=== PATIENT | male | born 1955 | race Caucasian/White ===

== ENCOUNTER → 2016-05-11 | Outpatient (CLI) | payer BC ==
[~2016-05-11] MED LIST: BENICAR; CALC-223 PO; ESCI10TA; ESOM20CA; LORA-52; LORA10TA3 PO; MESA500C; OMEG1CAP90 PO; TERA5CAP3 PO; UBID100C24 PO; VITA1TAB69 PO; [UNRECOGNIZED DRUG - OTHER]
[2016-05-11 07:24] LABS: BASOPHILS % 0.4 % (0.0-2.0); EOSINOPHILS # 0.1 10^3/ul (0.0-0.5); EOSINOPHILS % 2.2 % (0.0-7.0); HEMOGLOBIN 13.6 g/dl (14.0-18.0); LYMPHOCYTES # 1.4 10^3/ul (0.8-2.9); LYMPHOCYTES % 22.9 % (15.0-51.0); MEAN CORPUSCULAR HEMOGLOBIN 32.7 pg (29.0-33.0); MEAN CORPUSCULAR HGB CONC 34.1 g/dl (32.0-37.0); MEAN PLATELET VOLUME 8.3 fl (7.4-10.4); MONOCYTE # 0.3 10^3/ul (0.3-0.9); MONOCYTES % 5.3 % (0.0-11.0); NEUTROPHIL # 4.3 10^3/ul (1.6-7.5); NEUTROPHILS % 69.2 % (39.0-77.0); PLATELET COUNT 169 10^3/UL (140-440); RED BLOOD COUNT 4.16 10^6/ul (4.70-6.10); RED CELL DISTRIBUTION WIDTH 12.5 % (11.5-14.5); UNCORRECTED WBC 6.2 10^3/ul (4.8-10.8); WHITE BLOOD COUNT 6.2 10^3/ul (4.8-10.8)
[2016-05-11 07:39] LABS: ALBUMIN 4.4 g/dl (3.3-4.9); POTASSIUM 4.7 mmol/L (3.5-5.1)
[2016-05-11 07:41] LABS: CREATININE 1.37 mg/dl (0.61-1.24)
[2016-05-11 07:42] LABS: ALBUMIN/GLOBULIN RATIO 1.12; BILIRUBIN,INDIRECT 0.3 mg/dl (0-1.1); BILIRUBIN,TOTAL 0.3 mg/dl (0.2-1.3); CALCIUM 9.8 mg/dl (8.4-10.2); TOTAL PROTEIN 8.3 g/dl (6.1-8.1)
[2016-05-11 07:48] LABS: CONDITION 1
[2016-05-11 10:04] LABS: ADD UMIC YES; URINE BILIRUBIN (Dip) NEGATIVE (NEGATIVE); URINE BLOOD (Dip) 1+ (NEGATIVE); URINE COLOR YELLOW (YELLOW); URINE GLUCOSE (Dip) NEGATIVE (NEGATIVE); URINE KETONES (Dip) TRACE (NEGATIVE); URINE LEUKOCYTE ESTERASE (Dip) NEGATIVE (NEGATIVE); URINE NITRITE (Dip) NEGATIVE (NEGATIVE); URINE TOTAL PROTEIN (Dip) NEGATIVE (NEGATIVE); URINE UROBILINOGEN (Dip) 0.2 E.U./dL (0.1-1.0)
== END | disposition home or self-care (01) ==
LOC: LAB 06:53
PROVIDERS: ATTEND Internal Medicine Gastroenterology
DX: K50.90 Crohn's disease, unspecified, without complications (principal)
CPT/HCPCS: 80053; 81001; 81003; 85025; 85651; 86140

== ENCOUNTER 2016-05-25 14:09 | Inpatient (IN) | payer BC ==
[~2016-05-25] VITALS: Ht 170.2 cm; Wt 89.1 kg
[2016-05-25] MEDS ORDERED: HYDROmorphONE 1 MG/ML SYG IV STA ×4 (14:41→18:38)
[2016-05-25] MEDS ORDERED: ONDANSETRON 4 MG INJ IV STA ×2 (14:41→18:38)
[2016-05-25 15:13] LABS: BASOPHILS % 0.5 % (0.0-2.0); EOSINOPHILS # 0.2 10^3/ul (0.0-0.5); EOSINOPHILS % 2.5 % (0.0-7.0); HEMOGLOBIN 13.2 g/dl (14.0-18.0); LYMPHOCYTES # 3.9 10^3/ul (0.8-2.9); LYMPHOCYTES % 42.7 % (15.0-51.0); MEAN CORPUSCULAR HEMOGLOBIN 32.2 pg (29.0-33.0); MEAN CORPUSCULAR VOLUME 94.7 fl (82.0-101.0); MEAN PLATELET VOLUME 8.9 fl (7.4-10.4); MONOCYTE # 0.6 10^3/ul (0.3-0.9); MONOCYTES % 6.2 % (0.0-11.0); NEUTROPHIL # 4.4 10^3/ul (1.6-7.5); NEUTROPHILS % 48.1 % (39.0-77.0); PLATELET COUNT 197 10^3/UL (140-440); RED BLOOD COUNT 4.12 10^6/ul (4.70-6.10); RED CELL DISTRIBUTION WIDTH 12.4 % (11.5-14.5); UNCORRECTED WBC 9.1 10^3/ul (4.8-10.8); WHITE BLOOD COUNT 9.1 10^3/ul (4.8-10.8)
[2016-05-25 15:23] LABS: CONDITION 1
[2016-05-25 15:25] LABS: ALBUMIN 4.5 g/dl (3.3-4.9); CHLORIDE 106 mmol/L (97-110); SODIUM 145 mmol/L (135-144)
[2016-05-25 15:26] LABS: POTASSIUM 3.5 mmol/L (3.5-5.1)
[2016-05-25 15:27] LABS: BILIRUBIN,INDIRECT 0.2 mg/dl (0-1.1); BILIRUBIN,TOTAL 0.2 mg/dl (0.2-1.3); CREATININE 0.98 mg/dl (0.61-1.24)
[2016-05-25 15:28] LABS: ALANINE AMINOTRANSFERASE 26 IU/L (13-69); ALBUMIN/GLOBULIN RATIO 1.36; ALKALINE PHOSPHATASE 93 IU/L (42-121); ANION GAP 21 (8-16); ASPARTATE AMINO TRANSFERASE 25 IU/L (15-46); BLOOD UREA NITROGEN 18 mg/dl (7-20); CARBON DIOXIDE 22 mmol/L (21-31); TOTAL PROTEIN 7.8 g/dl (6.1-8.1)
[2016-05-25 15:29] LABS: CALCIUM 10.1 mg/dl (8.4-10.2); GLUCOSE 86 mg/dl (70-220)
[2016-05-25 15:41] LABS: C-REACTIVE PROTEIN < 0.5 mg/dl (0.0-0.9)
[2016-05-25 16:08] LABS: INR 0.91; PROTIME 12.2 Sec (12.2-14.2)
[2016-05-25] MEDS ORDERED: SOD CHLORIDE 0.9% 100 ML ONE (16:25)
[2016-05-25] MEDS ORDERED: IOHEXOL 300MG/ML 150 ML BTL ONE (16:25)
[2016-05-25] MEDS ORDERED: TERA5CAP3 PO (16:58)
[2016-05-25] MEDS ORDERED: PANT40TA3 PO (16:59)
[2016-05-25] MEDS ORDERED: MESA500C PO (16:59)
[2016-05-25] MEDS ORDERED: OLME40TA14 PO (17:00)
[2016-05-25] MEDS ORDERED: CHOL100062 PO (17:02)
[2016-05-25] MEDS ORDERED: VEDO300V IV (17:06)
[2016-05-25] MEDS ORDERED: TEST1.25 TD (17:25)
[2016-05-25] MEDS ORDERED: SOD CHLORIDE 0.9% 1,000 ML IV ONE ×2 (17:30)
[2016-05-25 17:54] VITALS: TEMP 99
--- NOTE | 2016-05-25 17:56 | RADRPT ---
AMENDMENT: 05/25/2016 7:25:03 PM Collin Quintana MD ADDENDUM: Although the appendix is prominent measuring up to 9.6 mm on the current study, the appendix was als o similarly prominent on multiple prior studies including CTs of 08/19/2014 and 05/15/2014. There a re no surrounding inflammatory changes on the current study. In the absence of associated inflammat ory changes of the mesenteric fat and clinical signs of appendicitis, an acute appendicitis is less likely. AMENDMENT: 05/25/2016 6:01:38 PM Jose Estrada M.D. Impression: 9. A suture line is identified with adjacent metal clips in the area of the sigmoid colon from prio r partial colectomy. PROCEDURE: CT scan of the abdomen and pelvis with and without IV contrast. CLINICAL INDICATION: Hypertension, appendectomy with history of colon resection. TECHNIQUE: Thin section axial, coronal and sagittal images were performed through the abdomen and pelvis without contrast and then following the injection of 90 cc of Isovue 300. Low-dose protocol i maging was utilized. One or more of the following dose reduction techniques were used: - Automated exposure control. - Adjustment of the mA and/or kV according to patient size. Use of iterative reconstruction technique. Radiation Dose: CTDI: 18.91 and DLP: 1055.6 COMPARISON: No. FINDINGS: Lungs and pleural space: Normal. Heart: There is a small pericardial effusion. The heart is normal in size. The liver, common bile duct and gallbladder: The liver is enlarged measuring 17.3 cm AP. There is f atty infiltration of the liver. The hepatic and portal veins are patent. No hepatic mass or intrah epatic biliary ductal dilatation is present. The gallbladder and gallbladder wall are normal. Pancreas: Normal. The extrahepatic common bile duct is normal. Gastrointestinal: There is no hiatal hernia or gastric wall thickening. The stomach is unremarkable . The small bowel loops have a normal caliber. There is contrast media in the rectal ampulla. The re are diverticula in the sigmoid colon. There are 2 clips adjacent to the distal descending colon. There are diverticula in the descending colon. There are diverticula in the splenic flexure and t ransverse colon. There are diverticula in the ascending colon. The appendix measures 1 cm consiste nt with acute appendicitis. There is no evidence of an appendicolith. There are bilateral inguinal hernias containing fat. Kidneys and bladder : There is a 3.3 x 3.5 cm benign cyst in the lower half of the left kidney. The kidneys are otherwise unremarkable. The urinary bladder is normal. No bladder wall thickening or bladder stone is identified. Adrenal glands: Normal. Spleen: Normal. Lymph nodes: Normal. Reproductive system: The prostate gland is enlarged. It measures 4.6 x 4.8 x 4.5 cm. The seminal v esicles are normal. No free fluid is noted in the pelvis. Bony elements: There are degenerative osteophytes in the thoracic and lumbar spine. There is a Schm orl's node impinging on the superior plate of T12 with disk space narrowing at T11-12. There is a T 12 compression fracture which is stable. There is dorsal disk space narrowing at L5-S1 with a broad disk bulge at L5-S1. There is no evidence of spondylolisthesis. Vasculature: There are vascular calcifications in the common iliac arteries. IMPRESSION: 1. Acute appendicitis. No evidence of an appendicolith. 2. Diverticulosis of the colon. 3. Small pericardial effusion. 4. Hepatomegaly with fatty infiltration of the liver. 5. See clips are noted adjacent to the distal descending colon. 6. Bilateral inguinal hernias containing fat but no intra-abdominal. 7. 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 8. T12 stable old compression fracture. RPTAT:AAJJ .Collin Quintana MD, MD Date Time Electronically viewed and signed by .Collin Quintana MD, MD on 05/25/2016 19:25 .K/
[2016-05-25] MEDS ORDERED: PIPER-TAZO 3.375 GM IV (PMX) 100 ML IVPB ONE (18:30)
--- NOTE | 2016-05-25 18:44 | ERA ---
ER Documentation Chief Complaint Date/Time DATE: 05/25/16 Chief Complaint SEVERE ABD PAIN, HX OF CROHNS HPI The patient is a patient is a 60-year-old male, presenting to the ER because of diffuse, severe abdominal pain that began yesterday morning, 01/18, no aggravating or relieving factor. He has similar symptoms previously, complains of nausea and vomiting mostly mucous, denies diarrhea, constipation, hematemesis , hematochezia. He does not smoke or drink Past medical history: Crohn's disease, hypertension Past surgical history: Left shoulder arthroscopy, knee arthroscopy, partial sigmoidectomy ROS All systems reviewed and are negative except as per history of present illness. Medications Home Meds Reported Medications Testosterone* (Androgel*) 1.62%-1.25gm Gel..ea., 1.25 GM TD DAILY Y for PRN, PACKET 05/25/16 Vedolizumab (Entyvio) 300 Mg Vial, 300 MG IV [id number], VIAL 05/25/16 Cholecalciferol* (Vitamin D3*) 1,000 Unit Tablet, 1000 UNIT PO BID, TAB 05/25/16 Olmesartan Medoxomil (Benicar) 40 Mg Tablet, 40 MG PO DAILY, #30 TAB 05/25/16 Mesalamine* (Pentasa*) 500 Mg Capsule.sa, 1000 MG PO QID, CAP 05/25/16 Pantoprazole* (Protonix*) 40 Mg Tablet.dr, 40 MG PO BID, TAB 05/25/16 Terazosin Hcl* (Terazosin Hcl*) 5 Mg Capsule, 5 MG PO HS, CAP 05/25/16 Discontinued Reported Medications Terazosin Hcl* (Terazosin Hcl*) 5 Mg Capsule, 5 MG PO DAILY, CAP 04/06/16 Vitamin B Complex (B Complete) 1 Tab Tablet, 1 TAB PO 200MG DAILY 12/27/13 Calcium Carbonate-Vitamin D3 (Calcium 1,000 + D3) 1 Each Tablet, 1 TAB PO DAILY , TAB 12/27/13 Ubidecarenone (Coq-10) 100 Mg Capsule, 100 MG PO DAILY 12/27/13 Fish Oil/[place]-3 Fatty Acids ([place] 3 Fish Oil 1,000 Mg Cap) 1 Cap Capsule, 1 CAP PO BID 12/27/13 Loratadine* (Loratadine*) 10 Mg Tablet, 10 MG PO DAILY, TAB 12/27/13 [Alfuzone] No Conflict Check, 1 TAB HS 12/27/13 [Benicar] No Conflict Check, 12.5 TAB DAILY 12/27/13 Loratadine (Alavert) 10 Mg Tablet 02/18/10 Escitalopram Oxalate* (Lexapro*) 10 Mg Tablet 02/18/10 Esomeprazole Mag Trihydrate (Nexium) 20 Mg Capsule. 02/18/10 Mesalamine* (Pentasa*) 500 Mg Capsule.sa 02/18/10 Allergies Allergies: Coded Allergies: aspirin (Verified Allergy, Mild, 05/25/16) PMhx/Soc History of Surgery: Yes (colon resection, lap appy, tosilectomy, shoulder and knee arthroscopy) Anesthesia Reaction: No Hx Neurological Disorder: No Hx Respiratory Disorders: No Hx Cardiac Disorders: Yes (HTN (CONTROLLED)) Hx Psychiatric Problems: No Hx Miscellaneous Medical Probl: Yes (CROHNS) Hx Alcohol Use: Yes (OOC) Hx Substance Use: No Hx Tobacco Use: No Smoking Status: Never smoker Physical Exam Vitals Vital Signs Date Time Temp Pulse Resp B/P Pulse Ox O2 Delivery O2 Flow Rate FiO2 05/25/16 17:54 99.0 95 16 122/62 99 Nasal Cannula 1.0 05/25/16 15:22 99.0 79 16 95/64 99 Physical Exam Const: No acute distress. Head: Atraumatic. Eyes: Normal Conjunctiva. ENT: Normal External Ears, Nose and Mouth. Neck: Full range of motion. No meningismus. Resp: Clear to auscultation bilaterally. Cardio: Regular rate and rhythm, no murmurs. Abd: Soft, non distended, normal bowel sounds, diffuse abdominal tenderness, no rigidity, rebound, CVA tenderness Skin: No petechiae or rashes. Back: No midline or flank tenderness. Ext: No cyanosis, or edema. Neur: Awake and alert. No focal deficit Psych: Normal Mood and Affect. Result Diagram: 05/25/16 1440 05/25/16 1440 Results 24 hrs Laboratory Tests Test 05/25/16 14:40 Activated Partial Thromboplast Time 36.0Sec Alanine Aminotransferase (ALT/SGPT) 26IU/L Albumin 4.5g/dl Albumin/Globulin Ratio 1.36 Alkaline Phosphatase 93IU/L Anion Gap 21 Aspartate Amino Transf (AST/SGOT) 25IU/L Basophils # 0.010^3/ul Basophils % 0.5% Blood Urea Nitrogen 18mg/dl C-Reactive Protein < 0.5mg/dl Calcium Level 10.1mg/dl Carbon Dioxide Level 22mmol/L Chloride Level 106mmol/L Creatinine 0.98mg/dl Direct Bilirubin 0.00mg/dl Eosinophils # 0.210^3/ul Eosinophils % 2.5% Erythrocyte Sedimentation Rate 40mm/Hr Globulin 3.30g/dl Glucose Level 86mg/dl Hematocrit 39.0% Hemoglobin 13.2g/dl INR International Normalized Ratio 0.91 Indirect Bilirubin 0.2mg/dl Lipase 90U/L Lymphocytes # 3.910^3/ul Lymphocytes % 42.7% Mean Corpuscular Hemoglobin 32.2pg Mean Corpuscular Hemoglobin Concent 34.0g/dl Mean Corpuscular Volume 94.7fl Mean Platelet Volume 8.9fl Monocytes # 0.610^3/ul Monocytes % 6.2% Neutrophils # 4.410^3/ul Neutrophils % 48.1% Nucleated Red Blood Cells # 0.010^3/ul Nucleated Red Blood Cells % 0.0/100WBC Platelet Count 10800^3/UL Potassium Level 3.5mmol/L Prothrombin Time 12.2Sec Prothrombin Time Ratio 1.0 Red Blood Count 4.1210^6/ul Red Cell Distribution Width 12.4% Sodium Level 145mmol/L Total Bilirubin 0.2mg/dl Total Protein 7.8g/dl White Blood Count 9.110^3/ul Current Medications Medications (Trade) Dose Ordered Sig/Dee Route PRN Reason Start Time Stop Time Status Last Admin Dose Admin Hydromorphone HCl (Dilaudid) 1 mg ONCE STAT IV 05/25/16 14:41 05/25/16 14:42 DC 05/25/16 14:54 Ondansetron HCl (Zofran Inj) 4 mg ONCE STAT IV 05/25/16 14:41 05/25/16 14:42 DC 05/25/16 14:53 Hydromorphone HCl (Dilaudid) 1 mg ONCE STAT IV 05/25/16 15:05 05/25/16 15:06 DC 05/25/16 15:12 IV Flush 10 ml 10 ml STK-MED ONCE .ROUTE 05/25/16 16:25 05/25/16 16:26 DC 05/25/16 16:32 Sodium Chloride (NS) 100 ml @ ud STK-MED ONCE .ROUTE 05/25/16 16:25 05/25/16 16:26 DC 05/25/16 16:33 Iohexol 150 ml 150 ml STK-MED ONCE .ROUTE 05/25/16 16:25 05/25/16 16:26 DC 05/25/16 16:32 Sodium Chloride (NS) 1,000 ml @ 1,000 mls/hr Q1H ONCE IV 05/25/16 17:30 05/25/16 18:29 DC 05/25/16 17:13 Hydromorphone HCl 1 mg 1 mg ONCE STAT IV 05/25/16 17:19 05/25/16 17:20 DC 05/25/16 17:24 Sodium Chloride 1,000 ml @ 1,000 mls/hr Q1H ONCE IV 05/25/16 17:30 05/25/16 18:29 DC 05/25/16 17:34 Piperacillin Sod/ Tazobactam Sod (Zosyn 3.375gm/ 100 ml (Pmx)) 100 ml @ 200 mls/hr ONCE ONCE IVPB 05/25/16 18:30 05/25/16 18:59 Procedures/[place] [id number] Radiology Main Line: [phone] DIAGNOSTIC IMAGING REPORT Patient: JESSICA ENCARNACION : 1955 Age: 60 Sex: M MR #: [id number] DOS: 05/25/16 1503 Ordering MD: EMILIA ALDRICH MD Location: E/R Room/Bed: AMENDMENT: 05/25/2016 6:01:38 PM Jose Estrada M.D. Impression: 9. A suture line is identified with adjacent metal clips in the area of the sigmoid colon from prior partial colectomy. PROCEDURE: CT scan of the abdomen and pelvis with and without IV contrast. CLINICAL INDICATION: Hypertension, appendectomy with history of colon resection. TECHNIQUE: Thin section axial, coronal and sagittal images were performed through the abdomen and pelvis without contrast and then following the injection of 90 cc of Isovue 300. Low-dose protocol imaging was utilized. One or more of the following dose reduction techniques were used: - Automated exposure control. - Adjustment of the mA and/or kV according to patient size. Use of iterative reconstruction technique. Radiation Dose: CTDI: 18.91 and DLP: 1055.6 COMPARISON: No. FINDINGS: Lungs and pleural space: Normal. Heart: There is a small pericardial effusion. The heart is normal in size. The liver, common bile duct and gallbladder: The liver is enlarged measuring 17.3 cm AP. There is fatty infiltration of the liver. The hepatic and portal veins are patent. No hepatic mass or intrahepatic biliary ductal dilatation is present. The gallbladder and gallbladder wall are normal. Pancreas: Normal. The extrahepatic common bile duct is normal. Gastrointestinal: There is no hiatal hernia or gastric wall thickening. The stomach is unremarkable. The small bowel loops have a normal caliber. There is contrast media in the rectal ampulla. There are diverticula in the sigmoid colon. There are 2 clips adjacent to the distal descending colon. There are diverticula in the descending colon. There are diverticula in the splenic flexure and transverse colon. There are diverticula in the ascending colon. The appendix measures 1 cm consistent with acute appendicitis. There is no evidence of an appendicolith. There are bilateral inguinal hernias containing fat. Kidneys and bladder : There is a 3.3 x 3.5 cm benign cyst in the lower half of the left kidney. The kidneys are otherwise unremarkable. The urinary bladder is normal. No bladder wall thickening or bladder stone is identified. Adrenal glands: Normal. Spleen: Normal. Lymph nodes: Normal. Reproductive system: The prostate gland is enlarged. It measures 4.6 x 4.8 x 4.5 cm. The seminal vesicles are normal. No free fluid is noted in the pelvis. Bony elements: There are degenerative osteophytes in the thoracic and lumbar spine. There is a Schmorl's node impinging on the superior plate of T12 with disk space narrowing at T11-12. There is a T12 compression fracture which is stable. There is dorsal disk space narrowing at L5-S1 with a broad disk bulge at L5-S1. There is no evidence of spondylolisthesis. Vasculature: There are vascular calcifications in the common iliac arteries. IMPRESSION: 1. Acute appendicitis. No evidence of an appendicolith. 2. Diverticulosis of the colon. 3. Small pericardial effusion. 4. Hepatomegaly with fatty infiltration of the liver. 5. See clips are noted adjacent to the distal descending colon. 6. Bilateral inguinal hernias containing fat but no intra-abdominal. 7. 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 8. T12 stable old compression fracture. RPTAT:AAJJ Physician Jesus Date Time Electronically viewed and signed by Dez Estrada Physician on 05/25/2016 18:01 JM/ CC: EMILIA ALDRICH MD MEDICAL MAKING DECISION: The patient is a 60-year-old male, presenting with acute appendicitis. He was treated with Dilaudid 1 mg IV 4 for pain and Zofran 4 mg IV for nausea and Zosyn IV. The differential diagnoses considered include but are not limited to acute Crohn's exacerbation, cholelithiasis, cholecystitis, cystitis, pancreatitis, hepatitis, gastritis, peptic ulcer disease, gastric ulcer, appendicitis, diverticulitis, cholangitis, choledocholithiasis, partial small bowel obstruction. Consultation: I discussed the patient with the on-call surgeon Dr. Joyner at 6: 15 pm, he was made aware of the lab, the treatment, the patient condition. He accepted the consult Departure Diagnosis: Primary Impression: Appendicitis Additional Impression: Anemia Condition: Stable Comments I discussed the findings with the patient. I discussed the patient with his physician Dr. Ureña who was made aware of the lab, the treatment, the patient condition and my discussion with the general surgeon. The patient is admitted to [facility] at 5:25 pm EMIILA ALDRICH MD May 25, 2016 18:44
[2016-05-25] MEDS ORDERED: ONDANSETRON 4 MG TAB PO PRN (19:00)
[2016-05-25] MEDS ORDERED: morphine 2 MG INJ IV PRN (19:00)
[2016-05-25] MEDS ORDERED: HYDROCODONE/APAP (5/325) TAB PO PRN (19:00)
[2016-05-25] MEDS ORDERED: NACL 0.9% 3 ML SYG IV SCH (19:00)
[2016-05-25] MEDS ORDERED: ACETAMINOPHEN 325 MG TAB PO PRN (19:00)
[2016-05-25] MEDS: PANTOPRAZOLE 40 MG INJ IV SCH (19:00)
--- NOTE | 2016-05-25 19:02 | HP ---
DATE OF ADMISSION: 05/25/2016 IDENTIFYING DATA: The patient is a 60-year-old male admitted to the hospital with diffuse abdominal pain of several months' duration that worsened today. HISTORICAL EVENTS: The patient states it has been over the last several months he has felt punk, fa tigued, has had intermittent and bloating with unremarkable bowel pattern, being followed by Dr. Rakel frias with respect to his Crohn disease, having been maintained on Entyvio since 12/2014 and having frederick d instrumenting, (either of colon or sigmoidoscope) in March that revealed a proctitis. It was t helene that he noted increasing bloating, increasing fatigue, some marked worsening in his appetite, t he absence in his appetite without fever or chills and elected to be evaluated in the emergency room . He has no localized abdominal pain, he has had no recent rectal bleeding. He denies cough, wheez ing, shortness of breath. He has had mild nausea. Denies urinary frequency, urgency, dysuria, or h ematuria. PAST MEDICAL HISTORY: Includes: 1. Crohn's disease, having been on Cimzia and Remicade prior. 2. History of hiatal hernia and duodenitis, as well as gastritis noted by endoscopy in 07/2013. 3. History of diverticulitis and surgery for the same. 4. Tonsillectomy. 5. Right knee surgery x2. 6. Rectal perianal fissure that required surgery in 2001. 7. Mild hyperlipidemia. 8. Mild elevated PSA with microhematuria noted in 04/2016, followup urologic evaluation is in order . 9. Hypertension. 10. Remote history of PAT. 11. History of vasectomy. 12. History of lupus inhibitor. 11. History of low testosterone. 12. Compression fracture noted at T12 in 07/2014. 13. Severe eructation undergoing CT chest, abdomen and pelvis 08/2014 that was unrevealing. ENT ev aluation was of no help. FAMILY HISTORY: Positive for COPD, overweight status. SOCIAL HISTORY: He is a nonsmoker. 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 MEDICATIONS: 1. Terazosin 5 mg per day. 2. Benicar 20/12.5 per day, 3. Lexapro 20, 4. Citracal 250+ D, 200 b.i.d. 5. Vitamin D 2000 units per day. 6. Co Q-10. 7. Nexium 40 mg per day. 8. Pentasa 500 mg capsules 2 tabs orally t.i.d. ALLERGIES OR INTOLERANCES TO INCLUDE: 1. ASPIRIN. 2. UROXATRAL. PHYSICAL EXAMINATION: GENERAL: Acutely ill male complaining of abdominal bloating. VITAL SIGNS: BP 128/80, pulse 70, respirations are 20, he was afebrile. EYES: Extraocular muscles were full. NOSE, MOUTH, AND THROAT: Normal. NECK: Supple. There was no jugular venous distention, thyroid enlargement or adenopathy. LUNGS: Clear. HEART: Rhythm regular, no murmur. No third or fourth sound. ABDOMEN: Distended. Bowel sounds markedly reduced. Generalized tenderness, no local tenderness in either quadrant. EXTREMITIES: No edema, no calf tenderness. NEUROLOGIC: No lateralizing motor weakness. IMPRESSION: Underlying Crohn's, having not done well with respect to bloating and fatigue during th e last 2 to 3 months, with now increasing bloating and no localized pain. Concern that his Crohn's has now become active. Await CAT scan that has just been ordered. PLAN: N.p.o., IV fluids, pain medications, PPI, GI and surgery to see. Dictated By: KELI CHRISTENSEN/NIRU Conf#: [id number] DID#: [id number]
[2016-05-25] MEDS ORDERED: BUPIVACAINE 0.25% (MPF) 30 ML INJ ONE (19:06)
--- NOTE | 2016-05-25 20:53 | CONS ---
DATE OF ADMISSION: 05/25/2016 DATE OF CONSULTATION: 05/25/2016 REASON FOR CONSULTATION: Abdominal pain. REQUESTING PHYSICIAN: Dr. Keli Park Thank you very much, Dr. Park, for your kind consultation. HISTORY OF PRESENT ILLNESS: The patient is a 60-year-old gentleman with a history of Crohn disease status post a sigmoid colon resection who presents complaining of generalized bloating and abdominal pain. He states that these symptoms have been present for the last 2 to 3 months, after he had sto pped taking his Crohn medications. He denies any nausea or vomiting or any fever/chills. He denies any actual change in his bowel habits. He, however, did present to the emergency room for further evaluation. On arrival to the emergency room, he was found to be afebrile with a normal white blood cell count and a CT scan of the abdomen and pelvis, which was done, showed thickening of the append ix. Surgical consultation, therefore, was called. Currently, he states he feels a little bit more comfortable and he denies any abdominal pain at this time, but does complain of some bloating and di scomfort. He states that this is similar type of discomfort when compared to his Crohn flare-ups. PAST MEDICAL HISTORY: Includes Crohn disease on biologic therapy, hiatal hernia and duodenitis as w ell as gastritis, diverticulitis status post colon resection, tonsillectomy, right knee surgery x2, perianal disease secondary to Crohn's, hypercholesterolemia, hypertension. PAST SURGICAL HISTORY: As mentioned in HPI. SOCIAL HISTORY: The patient does not smoke. 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 MEDICATIONS: Please refer to medication reconciliation. ALLERGIES: 1. ASPIRIN. 2. UROXATRAL. REVIEW OF SYSTEMS: A 14-point review of systems was conducted and was negative except for that whic h was mentioned in the HPI. PHYSICAL EXAMINATION: VITAL SIGNS: Temperature is 99.0, pulse is 95, respirations 16, blood pressure 122/62, O2 saturatio n is 99%. GENERAL APPEARANCE: He is a well-developed, well-nourished, male who is awake, alert, and oriented x3 and in no acute distress at this time. HEENT: His pupils are equal and reactive to light and accommodation. Extraocular muscles are intac t. NECK: Supple without JVD. CARDIOVASCULAR: S1, S2. Regular rate and rhythm. No murmurs appreciated. RESPIRATORY: Clear to auscultation bilaterally. ABDOMEN: Soft, but distended. Bowel sounds are present. He is nontender to palpation at this time . There is no evidence of rebound or guarding or diffuse peritonitis. There is a negative Rovsing sign. EXTREMITIES: Do not exhibit any signs of cyanosis, edema, or clubbing. LABORATORY WORK: Shows white blood cell count 9.1, hemoglobin 13.2, platelet count 197. There is n o left shift. Sodium is 145, potassium 3.5, chloride 106, bicarbonate 22, BUN 18, creatinine 0.98, glucose 86. INR is 0.91. IMAGING STUDIES: CT scan of the abdomen and pelvis shows diverticulosis of the colon, small pericar dial effusion, hepatomegaly with fatty infiltration of the liver, clips noted adjacent to the distal descending colon, bilateral inguinal hernias containing fat, atherosclerotic vascular disease of th e common iliac arteries, and a T12 stable compression fracture. The appendix is prominent measuring 9.6 mm. There are no periappendiceal inflammatory changes or appendicolith identified. RECOMMENDATIONS: This is a 60-year-old gentleman with a history of Crohn disease who presents with abdominal bloating and distention and generalized abdominal pain. Currently, the patient is without abdominal pain and, with the exception of some distention, has a b enign abdominal exam. I reviewed the CT scan images with prior CT scan images. The appendix actual ly looks about the same size as the CT scan in 08/2014. There are no inflammatory changes around th e appendix or appendicolith. I confirmed this with the radiologist, Dr. Quintana, who also seems to th ink that appendicitis is less likely given the patient's clinical picture. It is possible that the patient is having flare-up of his Crohn disease; however, there does not appear to be any changes of the small bowel consistent with an acute Crohn flare-up on the CT scan. Given the patient's clinic al stability and exam findings as well as history, I am not convinced that the patient has acute malka endicitis at this time. I would recommend admission with observation and evaluation by his regular GI doctor. Should his symptoms worsen or he develop more clear cut signs of acute appendicitis, the n consideration can be given to diagnostic laparoscopy at that time. I had an extensive discussion regarding the above with the patient and his . They fully underst and and are highly agreeable to the treatment plan as outlined. Further recommendations will be mad e based on the patient's clinical course. Once again, I thank you for allowing me to be involved in the care of this patient. I will follow t he patient closely with you. Dictated By: EMILIA JOHNSON/NIRU Conf#: [id number] DID#: [id number] CC: URI SHOEMAKER MD; KELI APRK MD;*End*
[2016-05-25 22:45] VITALS: BP 137/82; RESP 22
[2016-05-25] MEDS: morphine 2 MG INJ IV PRN (22:50)
[2016-05-25 23:00] VITALS: Ht 170.2 cm; Wt 89.1 kg
[2016-05-25] MEDS: SOD CHLORIDE 0.9% 1,000 ML IV SCH (23:00)
[2016-05-26] MEDS: TERAZOSIN 5 MG CAP PO SCH ×2 (00:13→21:09)
[2016-05-26] MEDS: SOD CHLORIDE 0.9% 1,000 ML IV SCH ×3 (03:49→21:09)
[2016-05-26] MEDS: morphine 2 MG INJ IV PRN ×5 (04:34→21:08)
[2016-05-26] MEDS: PANTOPRAZOLE 40 MG INJ IV SCH ×3 (05:35→17:03)
[2016-05-26 05:53] LABS: ALBUMIN 3.5 g/dl (3.3-4.9)
[2016-05-26 05:54] LABS: POTASSIUM 3.6 mmol/L (3.5-5.1)
[2016-05-26 05:55] LABS: BASOPHILS % 0.1 % (0.0-2.0); EOSINOPHILS # 0.2 10^3/ul (0.0-0.5); EOSINOPHILS % 3.5 % (0.0-7.0); HEMATOCRIT 33.8 % (42.0-52.0); HEMOGLOBIN 11.5 g/dl (14.0-18.0); LYMPHOCYTES # 2.3 10^3/ul (0.8-2.9); LYMPHOCYTES % 35.7 % (15.0-51.0); MEAN CORPUSCULAR HEMOGLOBIN 32.6 pg (29.0-33.0); MEAN CORPUSCULAR VOLUME 95.8 fl (82.0-101.0); MEAN PLATELET VOLUME 9.3 fl (7.4-10.4); MONOCYTE # 0.5 10^3/ul (0.3-0.9); MONOCYTES % 7.3 % (0.0-11.0); NEUTROPHIL # 3.4 10^3/ul (1.6-7.5); NEUTROPHILS % 53.4 % (39.0-77.0); PLATELET COUNT 147 10^3/UL (140-440); RED BLOOD COUNT 3.53 10^6/ul (4.70-6.10); RED CELL DISTRIBUTION WIDTH 12.6 % (11.5-14.5); UNCORRECTED WBC 6.4 10^3/ul (4.8-10.8); WHITE BLOOD COUNT 6.4 10^3/ul (4.8-10.8)
[2016-05-26 05:56] LABS: ALBUMIN/GLOBULIN RATIO 1.25; BILIRUBIN,INDIRECT 0.3 mg/dl (0-1.1); BILIRUBIN,TOTAL 0.3 mg/dl (0.2-1.3); CREATININE 0.89 mg/dl (0.61-1.24); TOTAL PROTEIN 6.3 g/dl (6.1-8.1)
[2016-05-26 05:57] LABS: CALCIUM 8.2 mg/dl (8.4-10.2); MAGNESIUM 1.9 mg/dl (1.7-2.5)
[2016-05-26 06:14] LABS: CONDITION 1
[2016-05-26 06:25] LABS: THYROID STIMULATING HORMONE 2.57 MIU/L (0.465-4.680)
[2016-05-26 07:32] VITALS: BP 127/72; RESP 15
--- NOTE | 2016-05-26 08:29 | PN ---
Date/Time of Note Date/Time of Note DATE: 05/26/16 TIME: 08:25 Assessment/Plan VTE Prophylaxis VTE Prophylaxis Intervention: LMWH Lines/Catheters IV Catheter Type (from Nrsg): Peripheral IV Assessment/Plan Assessment/Plan 1. Abd pain, bloating, red appetite sec Crohns, odd that ct scan revealed no bowel inflam, will rev with dr vera, apprec surg eval last night 2. Anemia, stool ob ordered and iron studies, b12 and folate 3. Will start lovenox, hx lupus anticoagulant. 4. Small pericardial effusion noted on ct scan--ht echo ordered 5. Hx GERD, will inc PPI 6. Diet advanced to clear liquid Subjective 24 Hr Interval Summary Respiratory: No cough, No shortness of breath Cardiovascular: No chest pain Gastrointestinal: other (bloated and full without localized pain, modest nausea , red appetite, int hiccups) Genitourinary: no complaints Musculoskeletal: No no complaints Exam/Review of Systems Vital Signs Vitals Vital Signs Date Time Temp Pulse Resp B/P Pulse Ox O2 Delivery O2 Flow Rate FiO2 05/26/16 07:32 98.8 78 15 127/72 98 05/25/16 23:00 Nasal Cannula 2.0 Intake and Output 05/25/16 05/25/16 05/26/16 15:00 23:00 07:00 Intake Total 1000 ml 620 ml Output Total 750 ml Balance 1000 ml -130 ml Exam Neck: No jvd Respiratory: clear to auscultation Cardiovascular: other (sl distended, soft, sl tender (generalized)), regular rate and rhythm Extremities: No edema (and no calf tend bilat) Results Result Diagram: 05/26/16 0446 05/26/16 0446 Results 24 hrs Laboratory Tests Test 05/25/16 14:40 05/26/16 04:46 Activated Partial Thromboplast Time 36.0 H Alanine Aminotransferase (ALT/SGPT) 26 31 Albumin 4.5 3.5 # Albumin/Globulin Ratio 1.36 1.25 Alkaline Phosphatase 93 78 Anion Gap 21 H 12 # Aspartate Amino Transf (AST/SGOT) 25 21 Basophils # 0.0 0.0 Basophils % 0.5 0.1 Blood Urea Nitrogen 18 15 C-Reactive Protein < 0.5 Calcium Level 10.1 8.2 L Carbon Dioxide Level 22 25 Chloride Level 106 108 Creatinine 0.98 0.89 Direct Bilirubin 0.00 0.00 Eosinophils # 0.2 0.2 Eosinophils % 2.5 3.5 Erythrocyte Sedimentation Rate 40 H Globulin 3.30 H 2.80 Glucose Level 86 92 Hematocrit 39.0 L 33.8 L Hemoglobin 13.2 L 11.5 L INR International Normalized Ratio 0.91 Indirect Bilirubin 0.2 0.3 Lipase 90 Lymphocytes # 3.9 H 2.3 Lymphocytes % 42.7 35.7 Mean Corpuscular Hemoglobin 32.2 32.6 Mean Corpuscular Hemoglobin Concent 34.0 34.0 Mean Corpuscular Volume 94.7 95.8 Mean Platelet Volume 8.9 9.3 Monocytes # 0.6 0.5 Monocytes % 6.2 7.3 Neutrophils # 4.4 3.4 Neutrophils % 48.1 53.4 Nucleated Red Blood Cells # 0.0 0.0 Nucleated Red Blood Cells % 0.0 0.0 Platelet Count 197 147 # Potassium Level 3.5 3.6 Prothrombin Time 12.2 Prothrombin Time Ratio 1.0 Red Blood Count 4.12 L 3.53 L Red Cell Distribution Width 12.4 12.6 Sodium Level 145 H 141 Total Bilirubin 0.2 0.3 Total Protein 7.8 6.3 # White Blood Count 9.1 # 6.4 # Magnesium Level 1.9 Phosphorus Level 3.0 Thyroid Stimulating Hormone (TSH) 2.570 Medications Medications Current Medications Terazosin HCl (Hytrin) 5 mg HS PO Last administered on 05/26/16 00:13; Admin Dose 5 MG; Start 05/25/16 at 23:00 Testosterone (Androgel) 1.25 gm BID TOP ; Start 05/25/16 at 09:00 Losartan Potassium (Cozaar) 100 mg DAILY PO ; Start 05/26/16 at 09:00 Pantoprazole (Protonix Iv) 40 mg DAILY@06 IV Last administered on 05/26/16 05: 35; Admin Dose 40 MG; Start 05/25/16 at 19:00 Escitalopram Oxalate 20 mg 20 mg DAILY PO ; Start 05/26/16 at 09:00 Sodium Chloride (NS) 1,000 ml @ 100 mls/hr Q10H IV Last administered on 23:00; Admin Dose 100 MLS/HR; Start 05/25/16 at 18:37 Ondansetron HCl (Zofran Tab) 4 mg Q6H PRN PO NAUSEA AND/OR VOMITING; Start at 19:00 Acetaminophen (Tylenol Tab) 650 mg Q6H PRN PO PAIN LEVEL 1-3 OR FEVER; Start at 19:00 Acetaminophen/ Hydrocodone Bitart ([place] (5/325)) 2 tab Q6H PRN PO SEVERE PAIN LEVEL 7-10; Start 05/25/16 at 19:00 Morphine Sulfate (morphine) 2 mg Q4H PRN IV PAIN LEVEL 7-10 Last administered on 05/26/16t 04:34; Admin Dose 2 MG; Start 05/25/16 at 19:00 Morphine Sulfate (morphine) 1 mg Q4H PRN IV PAIN LEVEL 1-3; Start 05/25/16 at 19:00 KELI PARK MD May 26, 2016 08:29
[2016-05-26] MEDS: ESCITALOPRAM 10 MG TAB PO SCH (08:38)
[2016-05-26] MEDS: LOSARTAN 50 MG TAB PO SCH (08:38)
[2016-05-26] MEDS: ENOXAPARIN 40 MG/0.4 ML SYG SC SCH (09:33)
[2016-05-26] MEDS: POTASSIUM CHLORIDE 50 ML IVPB SCH ×3 (10:20→12:21)
[2016-05-26] MEDS: TESTOSTERONE 1% GEL 5 GM PACKET TOP SCH ×2 (11:50→21:08)
--- NOTE | 2016-05-26 12:17 | RADRPT ---
PROCEDURE: XR Chest. CLINICAL INDICATION: Abdomen pain. TECHNIQUE: Two views. Frontal and lateral. COMPARISON: 03/30/2016. FINDINGS: The lungs are clear. The heart size is normal. There is no pleural effusion or pneumothorax. There are postsurgical changes of the left shoulder with metallic screws. There is an old compression fracture of approximately T12. IMPRESSION: 1. Prior left shoulder surgery. 2. Old compression fracture of approximately T12. 3. Otherwise unremarkable chest radiographs. RPTAT: QQ .Lloyd Guerra MD, MD Date Time Electronically viewed and signed by .Lloyd Guerra MD, MD on 05/26/2016 12:17 .R/
--- NOTE | 2016-05-26 12:20 | CONS ---
DATE OF ADMISSION: 05/25/2016 DATE OF CONSULTATION: 05/26/2016 TYPE OF CONSULTATION: Gastroenterology consultation. Thank you for having me see this patient. HISTORY OF PRESENT ILLNESS: As you know, he is a 60-year-old gentleman with Crohn's, having been di agnosed in 2004. The patient has had numerous flares over the years related to gastrointestinal and other somatic complaints. He had been on Humira, Cimzia and Remicade for extended periods of time. He developed tolerance for these medicines and lack of efficacy. Approximately 1-1/2 years ago e patient had a number of somatic complaints. These include feeling poorly, lack of energy and diff use body aching. He responded very quickly to Entyvio with those symptoms improving. He began deve loping decreasing energy and tenderness to touch of his abdomen in February or March. In [facility] a colonoscopy was performed which showed mostly proctitis. He was started on Canasa suppositori es in addition to his regimen of Entyvio and Pentasa, and with this, any rectal symptoms he was havi ng somewhat improved. However, gradually since then he has noticed worsening symptoms. On 04/25/19 17 he received his Entyvio injection. This made him feel better for a number of days, but quickly i ts efficacy wore off. He is not due for another Entyvio injection until 07/05/2016. He has notice d a decreased appetite and inability to eat. In addition, notes diffuse bloating after eating as we ll as decreased energy. He denies any diarrhea, constipation, rectal bleeding, melena, skin problem s or eye problems. He does note diffuse body aching. In the past, he has responded to steroids as a bridge to other biologic agents. PAST MEDICAL HISTORY: Significant for hospitalizations related to his Crohn disease and a colon res ection in 2003. Otherwise, he has had a tonsillectomy and adenoidectomy and knee surgery. He also had a fistula surgery and a perianal abscess being lanced. Adult illnesses significant for colon polyps, Crohn's disease, diverticulosis, reflux, hemorrhoids, osteopenia and rectal fistulas and anxiety. CHILDHOOD: Denies rheumatic fever or scarlet fever. ALLERGIES: ASPIRIN. INJURIES: None. MEDICATIONS: Currently include: 1. AndroGel. 2. Benicar. 3. Entyvio. 4. Lexapro. 5. Pantoprazole. 6. Pentasa. 7. Terazosin. 8. Vitamin D. 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 He does not smoke and was not a smok er. He only socially drinks alcohol 2 or 3 times a week. FAMILY HISTORY: Remarkable for a cousin who has Crohn's disease. REVIEW OF SYSTEMS: As noted above. PHYSICAL EXAMINATION: GENERAL: Shows the patient to be a well-developed, well-nourished male in no acute distress. VITAL SIGNS: Temperature 98.8, pulse 78, respirations 15, blood pressure 127/72. SKIN: Clear. HEENT: Negative. LUNGS: Clear to percussion and auscultation. CARDIAC: No murmurs, rubs, gallops. ABDOMEN: Soft, mild diffuse tenderness, no rebound, rigidity. LABORATORY DATA: Remarkable for white count 6.4, hemoglobin 11, hematocrit 33, platelets 40, PT INR 0.91, PTT 36. CRP less than 0.5. Chemistries within normal limits. CAT scan has been reviewed an d raised the question of appendicitis, although on review of previous CAT scan, this was felt not to be the case. He was also noted to have diverticulosis and a pericardial effusion as well as hepato megaly and a fatty liver. He also had bilateral inguinal hernias containing fat, but no viscera an d a stable T12 compression fracture. IMPRESSION: The patient feels his current symptoms are related to a flare of his Crohn disease. Of note, he has had similar somatic complaints that responded to steroids and biologics. I do note th at he has a small pericardial effusion which the patient recalls it being part of his presenting sym ptoms previously. Given that he has failed Entyvio, we need to think of an alternative medication. He had been on all 3 of the anti-TNF drugs, each for extended periods of time. He has not tolerate d immunosuppressives orally such as 6-mercaptopurine in the past. Therefore, at this point, we will put him on a course of steroids intravenously and have requested Stelara be given. Of note, the olinda montanez did have hepatitis studies and TB testing in February which were negative. Further recommendations to follow above and clinical course. Dictated By: URI MCFADDEN/NIRU Conf#: [id number] DID#: [id number] CC: URI SHOEMAKER MD; KELI PARK MD;*[facility]*
--- NOTE | 2016-05-26 13:27 | PN ---
Date/Time of Note Date/Time of Note DATE: 05/26/16 TIME: 13:24 Assessment/Plan Lines/Catheters IV [facility] ([facility] Peripheral IV Assessment/Plan Assessment/Plan 60-year-old gentleman with a history of Crohn disease who presents with abdominal bloating and distention and generalized abdominal pain. * Patient remains without significant abdominal pain and his clinical symptoms have not worsened. * White blood cell count remains normal * We can confidently rule out acute appendicitis as the patient's source of pain at this time * Continue management per GI and primary care team * Advance diet as tolerated * Will follow as needed Subjective 24 Hr Interval Summary Still feels bloated, but denies abdominal pain. Afebrile. Exam/Review of Systems Vital Signs Vitals Vital Signs Date Time Temp Pulse Resp B/P Pulse Ox O2 Delivery O2 Flow Rate FiO2 05/26/16 09:46 Nasal Cannula 2.0 05/26/16 07:32 98.8 78 15 127/72 98 Intake and Output 05/25/16 05/25/16 05/26/16 15:00 23:00 07:00 Intake Total 1000 ml 620 ml Output Total 750 ml Balance 1000 ml -130 ml Exam Free Text/Dictation GENERAL APPEARANCE: He is a well-developed, well-nourished, male who is awake, alert, and oriented x3 and in no acute distress at this time. CARDIOVASCULAR: S1, S2. Regular rate and rhythm. No murmurs appreciated. RESPIRATORY: Clear to auscultation bilaterally. ABDOMEN: Soft, but distended. Bowel sounds are present. He is nontender to palpation at this time. There is no evidence of rebound or guarding or diffuse peritonitis. EXTREMITIES: Do not exhibit any signs of cyanosis, edema, or clubbing. Results Result Diagram: 05/26/16 0446 05/26/16 0446 EMILIA MICHAELS MD May 26, 2016 13:27
[2016-05-26] MEDS: METHYLPREDNISOLONE 40 MG INJ IV SCH ×2 (13:50→21:08)
--- NOTE | 2016-05-26 14:51 | RADRPT ---
Vent Rate: 75 bpm RR Interval: 0 msec WI Interval: 152 msec QRS Duration: 100 msec QT Interval: 390 msec QTC Interval: 435 msec P-R-T Dresser: 48 - 0 - 36 degrees Normal sinus rhythm Normal ECG Electronically Signed By: Collin Neves [id number]
[2016-05-26 20:00] VITALS: BP 119/71; RESP 18
[2016-05-26 22:17] LABS: ADD UMIC YES; URINE BILIRUBIN (Dip) NEGATIVE (NEGATIVE); URINE BLOOD (Dip) TRACE (NEGATIVE); URINE COLOR LT. YELLOW (YELLOW); URINE GLUCOSE (Dip) NEGATIVE (NEGATIVE); URINE KETONES (Dip) TRACE (NEGATIVE); URINE LEUKOCYTE ESTERASE (Dip) NEGATIVE (NEGATIVE); URINE NITRITE (Dip) NEGATIVE (NEGATIVE); URINE TOTAL PROTEIN (Dip) NEGATIVE (NEGATIVE); URINE UROBILINOGEN (Dip) 0.2 E.U./dL (0.1-1.0)
[2016-05-26 23:54] LABS: URINE RBCS 0-2 /HPF (0)
[2016-05-26 23:55] LABS: BACTERIA,URINE RARE
[2016-05-27] MEDS: morphine 2 MG INJ IV PRN ×3 (01:09→09:21)
[2016-05-27] MEDS: PANTOPRAZOLE 40 MG INJ IV SCH (05:09)
[2016-05-27] MEDS: METHYLPREDNISOLONE 40 MG INJ IV SCH ×2 (05:09→14:16)
[2016-05-27 05:20] LABS: IRON 76 ug/dl (35-150)
[2016-05-27 05:21] LABS: CREATININE 0.82 mg/dl (0.61-1.24)
[2016-05-27 05:22] LABS: PHOSPHORUS 3.1 mg/dl (2.5-4.9)
[2016-05-27 05:23] LABS: CALCIUM 8.5 mg/dl (8.4-10.2); MAGNESIUM 1.8 mg/dl (1.7-2.5)
[2016-05-27 05:30] LABS: TOTAL IRON BINDING CAPACITY 230 ug/dl (241-421)
[2016-05-27 05:52] LABS: PROSTATE SPECIFIC ANTIGEN 3.7 ng/ml (0.0-4.0)
[2016-05-27 06:03] LABS: BASOPHILS % 0.1 % (0.0-2.0); HEMATOCRIT 33.9 % (42.0-52.0); HEMOGLOBIN 11.8 g/dl (14.0-18.0); LYMPHOCYTES # 0.8 10^3/ul (0.8-2.9); LYMPHOCYTES % 13.7 % (15.0-51.0); MEAN CORPUSCULAR HEMOGLOBIN 33.7 pg (29.0-33.0); MEAN CORPUSCULAR HGB CONC 34.7 g/dl (32.0-37.0); MEAN CORPUSCULAR VOLUME 97.1 fl (82.0-101.0); MEAN PLATELET VOLUME 9.1 fl (7.4-10.4); MONOCYTE # 0.2 10^3/ul (0.3-0.9); MONOCYTES % 2.9 % (0.0-11.0); NEUTROPHIL # 4.8 10^3/ul (1.6-7.5); NEUTROPHILS % 83.3 % (39.0-77.0); PLATELET COUNT 157 10^3/UL (140-440); RED BLOOD COUNT 3.49 10^6/ul (4.70-6.10); RED CELL DISTRIBUTION WIDTH 11.9 % (11.5-14.5); UNCORRECTED WBC 5.8 10^3/ul (4.8-10.8); WHITE BLOOD COUNT 5.8 10^3/ul (4.8-10.8)
[2016-05-27 06:05] LABS: CONDITION 1
[2016-05-27 06:30] LABS: FOLATE > 20.0 ng/ml (2.8-20.0)
[2016-05-27] MEDS ORDERED: PRED20TA PO (07:55)
--- NOTE | 2016-05-27 08:05 | CONS ---
Date/Time of Note Date/Time of Note DATE: 05/27/16 TIME: 08:00 Consult Date/Type/Reason Admit Date/Time May 25, 2016 at 17:25 Initial Consult Date Type of Consultation: GI Subjective Feels much better after starting steroids Appetite returning Denies abdominal pain Objective Vital Signs Date Time Temp Pulse Resp B/P Pulse Ox O2 Delivery O2 Flow Rate FiO2 05/26/16 20:00 98.1 79 18 119/71 94 05/26/16 09:46 Nasal Cannula 2.0 Chest: clear Cardiac: no m, r, g Abdomen: soft, non tender, +bs Intake and Output 05/26/16 05/26/16 05/27/16 15:00 23:00 07:00 Intake Total 1100 ml 1180 ml Output Total 200 ml Balance 900 ml 1180 ml Results/Medications Result Diagram: 05/27/16 0430 05/27/16 0430 Results 24 hrs Laboratory Tests Test 05/26/16 21:00 05/27/16 04:30 Urine Bacteria RARE Urine Bilirubin NEGATIVE Urine Clarity CLEAR Urine Color LT. YELLOW Urine Glucose NEGATIVE Urine Hemoglobin TRACE Urine Ketones TRACE Urine Leukocyte Esterase NEGATIVE Urine Microscopic RBC 0-2 Urine Microscopic WBC NONE SEEN Urine Nitrite NEGATIVE Urine Specific [place] 1.010 Urine Total Protein NEGATIVE Urine Urobilinogen 0.2 E.U./dL Urine pH 7.0 Anion Gap 13 Basophils # 0.0 Basophils % 0.1 Blood Urea Nitrogen 11 Calcium Level 8.5 Carbon Dioxide Level 25 Chloride Level 108 Creatinine 0.82 Eosinophils # 0.0 Eosinophils % 0.0 Ferritin 118.0 Folate > 20.0 H Glucose Level 126 Hematocrit 33.9 L Hemoglobin 11.8 L Iron Level 76 Lymphocytes # 0.8 Lymphocytes % 13.7 L Magnesium Level 1.8 Mean Corpuscular Hemoglobin 33.7 H Mean Corpuscular Hemoglobin Concent 34.7 Mean Corpuscular Volume 97.1 Mean Platelet Volume 9.1 Monocytes # 0.2 L Monocytes % 2.9 Neutrophils # 4.8 Neutrophils % 83.3 H Nucleated Red Blood Cells # 0.0 Nucleated Red Blood Cells % 0.0 Percent Iron Saturation 33 Phosphorus Level 3.1 Platelet Count 157 Potassium Level 4.0 Prostate Specific Antigen 3.7 Red Blood Count 3.49 L Red Cell Distribution Width 11.9 Sodium Level 142 Total Iron Binding Capacity 230 L Vitamin B12 Level > 1000 H White Blood Count 5.8 Medications Current Medications Terazosin HCl (Hytrin) 5 mg HS PO Last administered on 05/26/16 21:09; Admin Dose 5 MG; Start 05/25/16 at 23:00 Testosterone (Androgel) 1.25 gm BID TOP Last administered on 05/26/16 21:08; Admin Dose 1.25 GM; Start 05/25/16 at 09:00 Losartan Potassium (Cozaar) 100 mg DAILY PO Last administered on 05/26/16 08: 38; Admin Dose 100 MG; Start 05/26/16 at 09:00 Escitalopram Oxalate 20 mg 20 mg DAILY PO Last administered on 05/26/16 08:38 ; Admin Dose 20 MG; Start 05/26/16 at 09:00 Sodium Chloride (NS) 1,000 ml @ 70 mls/hr [id number] IV Last administered on 05/26 21:09; Admin Dose 70 MLS/HR; Start 05/25/16 at 18:37 Ondansetron HCl (Zofran Tab) 4 mg Q6H PRN PO NAUSEA AND/OR VOMITING; Start at 19:00 Acetaminophen (Tylenol Tab) 650 mg Q6H PRN PO PAIN LEVEL 1-3 OR FEVER; Start at 19:00 Acetaminophen/ Hydrocodone Bitart ([place] (5/325)) 2 tab Q6H PRN PO SEVERE PAIN LEVEL 7-10; Start 05/25/16 at 19:00 Morphine Sulfate (morphine) 2 mg Q4H PRN IV PAIN LEVEL 7-10 Last administered on 05/27/16 05:10; Admin Dose 2 MG; Start 05/25/16 at 19:00 Morphine Sulfate (morphine) 1 mg Q4H PRN IV PAIN LEVEL 1-3; Start 05/25/16 at 19:00 Pantoprazole (Protonix Iv) 40 mg BID@06,18 IV Last administered on 05/27/16 05 :09; Admin Dose 40 MG; Start 05/26/16 at 09:00 Enoxaparin Sodium (Lovenox) 40 mg DAILY SC Last administered on 05/26/16 09:33 ; Admin Dose 40 MG; Start 05/26/16 at 09:00 Methylprednisolone Sodium Succinate (Solu-Medrol) 20 mg Q8 IV Last administered on 05/27/16t 05:09; Admin Dose 20 MG; Start 05/26/16 at 14:00 Loratadine (Claritin) 10 mg DAILY PO ; Start 05/27/16 at 09:00 Assessment/Plan Chief Complaint/Hosp Course Impression: Crohns flare improving on steroids Plan: Spoke with pharmacy and anticipate infusion of stelara 390mg today Discharge after infusion Then will need 90 mg q 2 months Steroids orally, 60mg/d on discharge and then taper 10mg/week if tolerated Discussed with Dr. Ureña Office fu 2 weeks Problems: URI SHOEMAKER MD May 27, 2016 08:05
[2016-05-27 08:34] VITALS: BP 152/85; RESP 18
[2016-05-27] MEDS ORDERED: LORATADINE 10 MG TAB PO SCH (09:00)
[2016-05-27] MEDS: ESCITALOPRAM 10 MG TAB PO SCH (09:05)
[2016-05-27] MEDS: LOSARTAN 50 MG TAB PO SCH (09:07)
[2016-05-27] MEDS: ENOXAPARIN 40 MG/0.4 ML SYG SC SCH (09:13)
[2016-05-27] MEDS: TESTOSTERONE 1% GEL 5 GM PACKET TOP SCH (09:22)
--- NOTE | 2016-05-27 10:51 | RADRPT ---
Echocardiogram Report Patient Name: JESSICA ENCARNACION Gender: Male Date: 1955 Study Date: 26-May-2016 Head Greenskeeper: Stevenson Gerber [facility] Location: [id number] Ref. Physician: KELI PARK Quality: Good Procedures: Transthoracic echocardiogram with complete 2D, M-Mode, and doppler examination. Indications: Pericardial Effusion. 2D/M Mode Doppler Measurement Value Normal Ranges Measurement Value Normal Ranges LVIDd 2D 5.3 3.5 - 5.6 cm AV Peak [place] 1.4 m/sec LVIDs 2D 3.1 2.1 - 4.1 cm AV Peak PG 8.0 mmHg FS 2D 41.9 % LVOT Peak [place] 1.1 m/sec LVPWd 2D 1.0 0.6 - 1.1 cm LVOT Peak PG 4.0 mmHg IVSd 2D 1.0 0.6 - 1.1 cm MV E Peak [place] 0.5 m/sec IVS/LVPW 2D 1.0 MV A Peak [place] 0.8 m/sec AoR Diam 2D 3.1 2.0 - 3.7 cm MV E/A 0.6 LA/Ao 2D 1 0 - 1 MV Decel Time 148 msec EDV 2D 151.0 cm3 MV E/A 0.6 ESV 2D 29.5 cm3 TR Peak [place] 2.5 m/sec LA Dimen 2D 4.5 2.3 - 4.0 cm TR Peak PG 25.0 mmHg RVSP 28.0 mmHg Findings Left Ventricle: Normal left ventricular systolic function. Normal left ventricular cavity size. Normal left ventricular wall thickness. Ejection fraction is visually estimated at 60 %. Tissue Doppler/Mitral Doppler indices are consistent with impaired relaxation (Stage I diastolic dysfunction). E/E`=6. c/w normal LA pressure. Right Ventricle: Normal right ventricular size. Normal right ventricular systolic function. Left Atrium: There is mild enlargement of left atrium. Right Atrium: The right atrium is normal in size. Mitral Valve: Mitral valve leaflets appear mildly thickened. Mild mitral annular calcification. Trace mitral regurgitation. Aortic Valve: Trileaflet aortic valve. No aortic regurgitation. Tricuspid Valve: Normal appearance of the tricuspid valve. Estimated peak PA systolic pressure 28 mmHg. There is trace tricuspid regurgitation. no significant pulmonary HTN noted. Pulmonic Valve: Normal pulmonic valve appearance. Pericardium: Normal pericardium with no significant pericardial effusion. small echogenic space anteriorly a small pericardial loculated effusion or prominent pericardial fat pad could not be excluded. Aorta: Normal aortic root. IVC: Normal size and normal respiratory collapse consistent with normal right atrial pressure. Conclusions 1.No Vegetation, masses, or thrombi seen. 2.Normal left ventricular systolic function. Normal left ventricular cavity size. Normal left ventricular wall thickness. Ejection fraction is visually estimated at 60 %. Tissue Doppler/Mitral Doppler indices are consistent with impaired relaxation (Stage I diastolic dysfunction). E/E`=6. c/w normal LA pressure. 3.There is mild enlargement of left atrium. 4.Mitral valve leaflets appear mildly thickened. Mild mitral annular calcification. Trace mitral regurgitation. 5.Trileaflet aortic valve. No aortic regurgitation. 6.Normal appearance of the tricuspid valve. Estimated peak PA systolic pressure 28 mmHg. There is trace tricuspid regurgitation. no significant pulmonary HTN noted. 7.Normal pericardium with no significant pericardial effusion. small echogenic space anteriorly a small pericardial loculated effusion or prominent pericardial fat pad could not be excluded. 8.Normal size and normal respiratory collapse consistent with normal right atrial pressure. Electronically Signed By: Jose Monzon 27-May-2016 10:50:31 -0800 Patient Name: JESSICA ENCARNACION Study Date: 26-May-[id number]
--- NOTE | 2016-05-27 11:19 | PN ---
Date/Time of Note Date/Time of Note DATE: 05/27/16 TIME: 11:14 Assessment/Plan VTE Prophylaxis VTE Prophylaxis Intervention: LMWH Lines/Catheters IV Catheter Type (from Nrsg): Peripheral IV Assessment/Plan Assessment/Plan 1. Crohns dz, symptoms are better with steroids given last night, rev with gi-> OP rx 2. Anemia, stable, stool ob pending, iron studies were nl 3. Pericardial effusion noted on ct, echo pending 4. OK to dc today, will cont prednisone 60mg/d and to see me in 1 week, dr vera in 2 weeks 5. Rec follow up urology eval as psa hi nl and microhematuria noted in office pre admit Subjective 24 Hr Interval Summary Respiratory: No cough, No shortness of breath, No sputum Cardiovascular: No chest pain, No lightheadedness Gastrointestinal: other (less bloated without n, v, and still intermittent hiccups (grunting)) Genitourinary: no complaints Musculoskeletal: no complaints Exam/Review of Systems Vital Signs Vitals Vital Signs Date Time Temp Pulse Resp B/P Pulse Ox O2 Delivery O2 Flow Rate FiO2 05/27/16 08:34 98.2 87 18 152/85 98 05/26/16 09:46 Nasal Cannula 2.0 Intake and Output 05/26/16 05/26/16 05/27/16 15:00 23:00 07:00 Intake Total 1100 ml 1180 ml Output Total 200 ml Balance 900 ml 1180 ml Exam Neck: No jvd Respiratory: clear to auscultation Cardiovascular: regular rate and rhythm Gastrointestinal: soft Extremities: No edema (and no calf tend) Results Result Diagram: 05/27/16 04305/27/16 0430 Results 24 hrs Laboratory Tests Test 05/26/16 21:00 05/27/16 04:30 Urine Bacteria RARE Urine Bilirubin NEGATIVE Urine Clarity CLEAR Urine Color LT. YELLOW Urine Glucose NEGATIVE Urine Hemoglobin TRACE Urine Ketones TRACE Urine Leukocyte Esterase NEGATIVE Urine Microscopic RBC 0-2 Urine Microscopic WBC NONE SEEN Urine Nitrite NEGATIVE Urine Specific [place] 1.010 Urine Total Protein NEGATIVE Urine Urobilinogen 0.2 E.U./dL Urine pH 7.0 Anion Gap 13 Basophils # 0.0 Basophils % 0.1 Blood Urea Nitrogen 11 Calcium Level 8.5 Carbon Dioxide Level 25 Chloride Level 108 Creatinine 0.82 Eosinophils # 0.0 Eosinophils % 0.0 Ferritin 118.0 Folate > 20.0 H Glucose Level 126 Hematocrit 33.9 L Hemoglobin 11.8 L Iron Level 76 Lymphocytes # 0.8 Lymphocytes % 13.7 L Magnesium Level 1.8 Mean Corpuscular Hemoglobin 33.7 H Mean Corpuscular Hemoglobin Concent 34.7 Mean Corpuscular Volume 97.1 Mean Platelet Volume 9.1 Monocytes # 0.2 L Monocytes % 2.9 Neutrophils # 4.8 Neutrophils % 83.3 H Nucleated Red Blood Cells # 0.0 Nucleated Red Blood Cells % 0.0 Percent Iron Saturation 33 Phosphorus Level 3.1 Platelet Count 157 Potassium Level 4.0 Prostate Specific Antigen 3.7 Red Blood Count 3.49 L Red Cell Distribution Width 11.9 Sodium Level 142 Total Iron Binding Capacity 230 L Vitamin B12 Level > 1000 H White Blood Count 5.8 Medications Medications Current Medications Terazosin HCl (Hytrin) 5 mg HS PO Last administered on 05/26/16 21:09; Admin Dose 5 MG; Start 05/25/16 at 23:00 Testosterone (Androgel) 1.25 gm BID TOP Last administered on 05/27/16 09:22; Admin Dose 1.25 GM; Start 05/25/16 at 09:00 Losartan Potassium (Cozaar) 100 mg DAILY PO Last administered on 05/27/16 09: 07; Admin Dose 100 MG; Start 05/26/16 at 09:00 Escitalopram Oxalate 20 mg 20 mg DAILY PO Last administered on 05/27/16 09:05 ; Admin Dose 20 MG; Start 05/26/16 at 09:00 Sodium Chloride (NS) 1,000 ml @ 70 mls/hr [id number] IV Last administered on 05/26 21:09; Admin Dose 70 MLS/HR; Start 05/25/16 at 18:37 Ondansetron HCl (Zofran Tab) 4 mg Q6H PRN PO NAUSEA AND/OR VOMITING; Start at 19:00 Acetaminophen (Tylenol Tab) 650 mg Q6H PRN PO PAIN LEVEL 1-3 OR FEVER; Start at 19:00 Acetaminophen/ Hydrocodone Bitart ([place] (5/325)) 2 tab Q6H PRN PO SEVERE PAIN LEVEL 7-10; Start 05/25/16 at 19:00 Morphine Sulfate (morphine) 2 mg Q4H PRN IV PAIN LEVEL 7-10 Last administered on 05/27/16 09:21; Admin Dose 2 MG; Start 05/25/16 at 19:00 Morphine Sulfate (morphine) 1 mg Q4H PRN IV PAIN LEVEL 1-3; Start 05/25/16 at 19:00 Pantoprazole (Protonix Iv) 40 mg BID@06,18 IV Last administered on 05/27/16 05 :09; Admin Dose 40 MG; Start 05/26/16 at 09:00 Enoxaparin Sodium (Lovenox) 40 mg DAILY SC Last administered on 05/27/16 09:13 ; Admin Dose 40 MG; Start 05/26/16 at 09:00 Methylprednisolone Sodium Succinate (Solu-Medrol) 20 mg Q8 IV Last administered on 05/27/16 05:09; Admin Dose 20 MG; Start 05/26/16 at 14:00 Loratadine 10 mg 10 mg DAILY PO Last administered on 05/27/16 09:06; Admin Dose 10 MG; Start 05/27/16 at 09:00 Non-Formulary Medication/Sodium Chloride (NS) 250 ml @ 250 mls/hr ONCE IV ; Start 05/27/16 at 12:00; Stop 05/27/16 at 16:00 KELI PARK MD May 27, 2016 11:18
[2016-05-27] MEDS ORDERED: USTEKINUMAB IV SCH (12:00)
[2016-05-27] MEDS ORDERED: [UNRECOGNIZED DRUG - OTHER] IV SCH (12:00)
[2016-05-27 13:08] VITALS: BP 124/78; PULSE 77; RESP 16
[2016-05-27 13:30] VITALS: BP 105/57; PULSE 87; RESP 16
[2016-05-27 13:45] VITALS: BP 118/62; PULSE 87; RESP 16
--- NOTE | 2016-05-31 16:28 | DS ---
DATE OF ADMISSION: 05/25/2016 DATE OF DISCHARGE: 05/27/2016 This is a 60-year-old male admitted with diffuse abdominal pain of several months' duration, markedl y worsened several hours prior to admission with known Crohn's disease and a history of diverticulit is. PERTINENT EXAMINATION: VITAL SIGNS: He was afebrile. BP 128/80, pulse 70. CARDIOPULMONARY: Unrevealing. ABDOMEN: Distended, bowel sounds were reduced. There is generalized tenderness, but no localized t enderness. LABORATORY AND DIAGNOSTIC STUDIES: Hematocrit was 39 on 05/25/2016, it was 33.9 on 05/27/2016. Whi te count remained normal, platelet count was normal, sed rate was 40. Liver tests were normal. TSH was normal, folate and B12. PSA was 3.7. Iron saturation was about 33%, ferritin was 118. INR w as 1, PTT was 36, normal being 25 to 35. Lupus anticoagulant was negative but anticardiolipin IgM w as 90 that was elevated. IgG and IgM were normal. Urinalysis revealed 0 to 2 red cells, was negati ve for blood. IMAGING STUDIES: Included CT of the abdomen and pelvis that revealed a questionable small pericardi al effusion and appendicitis was thought present. Diverticulosis was noted, hepatomegaly and fatty infiltration of the liver. HOSPITAL COURSE: The patient was seen by Dr. Collin Joyner in surgical consultation and felt patien t did not have an appendicitis and was seen by Dr. [place] Kirkland who confirmed the same. It was felt that no surgical intervention needed. Moderate high dose intravenous steroids were instituted and Dr. Kirkland began immunotherapy prior to discharge. At time of discharge, his abdominal discomfort mar kedly improved. DISCHARGE DIAGNOSIS: 1. Crohn's disease with clinical flare to be discharged on prednisone 60 mg a day for 1 week and fo llowed by myself and Dr. Kirkland in 1 week as well as AndroGel to be applied b.i.d. 2. Terazosin 5 mg at bedtime. 3. Protonix 40 b.i.d. 4. Benicar 40 mg per day. 5. Vitamin D3 at 1000 per day. 6. Soft diet as tolerated. Dictated By: KELI CHRISTENSEN/NTS Conf#: [id number] DID#: [id number]
== END 2016-05-27 15:15 | disposition home or self-care (01) | DRG 386 ==
LOC: E/R 14:09 → MS1 17:25
PROVIDERS: ADMIT Internal Medicine; ATTEND Internal Medicine
DX: K50.90 Crohn's disease, unspecified, without complications (principal); I31.3 Pericardial effusion (noninflammatory); E78.5 Hyperlipidemia, unspecified; I10 Essential (primary) hypertension; D64.9 Anemia, unspecified
CPT/HCPCS: 36415; 71020; 74177; 80048; 80053; 81001; 81003; 82607; 82728; 82746; 83540; 83690; 83735; 84100; 84153; 84154; 84443; 85025; 85610; 85613; 85651; 85730; 86140; 86147; 93005; 93306; 96361; 96365; 96375; 96376; C9113; J1170; J1650; J2270; J2405; J2543; J2920; J3480; J7030; J7050; Q9967

== ENCOUNTER → 2016-06-07 | Outpatient (CLI) | payer BC ==
[~2016-06-07] MED LIST changes: -BENICAR; -CALC-223 PO; +CHOL100062 PO; -ESCI10TA; -ESOM20CA; -LORA-52; -LORA10TA3 PO; -MESA500C; +OLME40TA14 PO; -OMEG1CAP90 PO; +PANT40TA3 PO; +PRED20TA PO; +TEST1.25 TD; -UBID100C24 PO; -VITA1TAB69 PO; -[UNRECOGNIZED DRUG - OTHER]
[2016-06-07 08:10] LABS: ADD SCAN DIFF NO
[2016-06-07 08:19] LABS: BASOPHILS % 0.1 % (0.0-2.0); EOSINOPHILS # 0.1 10^3/ul (0.0-0.5); EOSINOPHILS % 1.3 % (0.0-7.0); HEMATOCRIT 39.2 % (42.0-52.0); HEMOGLOBIN 12.9 g/dl (14.0-18.0); LYMPHOCYTES # 3.8 10^3/ul (0.8-2.9); LYMPHOCYTES % 35.1 % (15.0-51.0); MEAN CORPUSCULAR HEMOGLOBIN 32.3 pg (29.0-33.0); MEAN CORPUSCULAR HGB CONC 32.9 g/dl (32.0-37.0); MEAN PLATELET VOLUME 10.7 fl (7.4-10.4); MONOCYTE # 0.7 10^3/ul (0.3-0.9); MONOCYTES % 6.2 % (0.0-11.0); NEUTROPHIL # 6.1 10^3/ul (1.6-7.5); NEUTROPHILS % 56.7 % (39.0-77.0); PLATELET COUNT 162 10^3/UL (140-415); RED CELL DISTRIBUTION WIDTH 13.1 % (11.5-14.5); WHITE BLOOD COUNT 10.8 10^3/ul (4.8-10.8)
[2016-06-07 08:32] LABS: POTASSIUM 4.2 mmol/L (3.5-5.1)
[2016-06-07 08:35] LABS: CALCIUM 9.6 mg/dl (8.4-10.2); CREATININE 1.06 mg/dl (0.61-1.24)
== END | disposition home or self-care (01) ==
LOC: LAB 07:11
PROVIDERS: ATTEND Internal Medicine
DX: K50.90 Crohn's disease, unspecified, without complications (principal)
CPT/HCPCS: 80048; 85025; 85651; 86140

== ENCOUNTER → 2016-06-15 | Outpatient (CLI) | payer BC ==
[2016-06-17 07:34] LABS: FORTY EIGHT HOUR READING 0 mm (0-9)
== END | disposition home or self-care (01) ==
LOC: LAB 07:30
PROVIDERS: ATTEND Internal Medicine Gastroenterology
DX: K50.90 Crohn's disease, unspecified, without complications (principal)
CPT/HCPCS: 86580

== ENCOUNTER → 2016-08-09 | Outpatient (CLI) | payer BC ==
[2016-08-09 07:10] LABS: ADD SCAN DIFF NO
[2016-08-09 07:11] LABS: BASOPHILS % 0.3 % (0.0-2.0); EOSINOPHILS # 0.2 10^3/ul (0.0-0.5); EOSINOPHILS % 2.5 % (0.0-7.0); HEMATOCRIT 38.7 % (42.0-52.0); HEMOGLOBIN 13.3 g/dl (14.0-18.0); LYMPHOCYTES # 1.8 10^3/ul (0.8-2.9); LYMPHOCYTES % 29.9 % (15.0-51.0); MEAN CORPUSCULAR HEMOGLOBIN 33.7 pg (29.0-33.0); MEAN CORPUSCULAR HGB CONC 34.4 g/dl (32.0-37.0); MEAN PLATELET VOLUME 9.8 fl (7.4-10.4); MONOCYTE # 0.4 10^3/ul (0.3-0.9); MONOCYTES % 6.7 % (0.0-11.0); NEUTROPHIL # 3.7 10^3/ul (1.6-7.5); NEUTROPHILS % 60.3 % (39.0-77.0); PLATELET COUNT 166 10^3/UL (140-415); RED BLOOD COUNT 3.95 10^6/ul (4.70-6.10); RED CELL DISTRIBUTION WIDTH 12.5 % (11.5-14.5); WHITE BLOOD COUNT 6.1 10^3/ul (4.8-10.8)
[2016-08-09 07:21] LABS: CHLORIDE 103 mmol/L (97-110)
[2016-08-09 07:22] LABS: ALBUMIN 4.3 g/dl (3.3-4.9); POTASSIUM 4.7 mmol/L (3.5-5.1); SODIUM 142 mmol/L (135-144)
[2016-08-09 07:24] LABS: CREATININE 1.17 mg/dl (0.61-1.24)
[2016-08-09 07:25] LABS: ALANINE AMINOTRANSFERASE 27 IU/L (13-69); ALKALINE PHOSPHATASE 77 IU/L (42-121); ANION GAP 15 (8-16); ASPARTATE AMINO TRANSFERASE 20 IU/L (15-46); BILIRUBIN,INDIRECT 0.4 mg/dl (0-1.1); BILIRUBIN,TOTAL 0.4 mg/dl (0.2-1.3); CARBON DIOXIDE 29 mmol/L (21-31); TOTAL PROTEIN 7.6 g/dl (6.1-8.1)
[2016-08-09 07:26] LABS: BLOOD UREA NITROGEN 19 mg/dl (7-20); CALCIUM 9.8 mg/dl (8.4-10.2); GLUCOSE 126 mg/dl (70-220)
[2016-08-09 07:33] LABS: C-REACTIVE PROTEIN < 0.5 mg/dl (0.0-0.9)
== END | disposition home or self-care (01) ==
LOC: LAB 06:51
PROVIDERS: ATTEND Internal Medicine Gastroenterology
DX: K50.90 Crohn's disease, unspecified, without complications (principal)
CPT/HCPCS: 80053; 85025; 85651; 86140

== ENCOUNTER → 2016-11-12 | Outpatient (CLI) | payer BC ==
[2016-11-12 07:14] LABS: BASOPHILS % 0.5 % (0.0-2.0); EOSINOPHILS # 0.4 10^3/ul (0.0-0.5); EOSINOPHILS % 5.6 % (0.0-7.0); HEMATOCRIT 39.9 % (42.0-52.0); HEMOGLOBIN 13.6 g/dl (14.0-18.0); LYMPHOCYTES # 2.2 10^3/ul (0.8-2.9); MEAN CORPUSCULAR HEMOGLOBIN 32.9 pg (29.0-33.0); MEAN CORPUSCULAR HGB CONC 34.1 g/dl (32.0-37.0); MEAN CORPUSCULAR VOLUME 96.4 fl (82.0-101.0); MEAN PLATELET VOLUME 10.2 fl (7.4-10.4); MONOCYTE # 0.5 10^3/ul (0.3-0.9); MONOCYTES % 8.2 % (0.0-11.0); NEUTROPHIL # 3.3 10^3/ul (1.6-7.5); NEUTROPHILS % 51.4 % (39.0-77.0); PLATELET COUNT 147 10^3/UL (140-415); RED BLOOD COUNT 4.14 10^6/ul (4.70-6.10); RED CELL DISTRIBUTION WIDTH 12.5 % (11.5-14.5); WHITE BLOOD COUNT 6.5 10^3/ul (4.8-10.8)
[2016-11-12 07:35] LABS: ALBUMIN 4.7 g/dl (3.3-4.9); ALBUMIN/GLOBULIN RATIO 1.51; BILIRUBIN,INDIRECT 0.5 mg/dl (0-1.1); BILIRUBIN,TOTAL 0.5 mg/dl (0.2-1.3); CALCIUM 9.5 mg/dl (8.4-10.2); CREATININE 1.22 mg/dl (0.61-1.24); POTASSIUM 4.2 mmol/L (3.5-5.1); TOTAL PROTEIN 7.8 g/dl (6.1-8.1)
== END | disposition home or self-care (01) ==
LOC: LAB 06:50
PROVIDERS: ATTEND Internal Medicine Gastroenterology
DX: K50.90 Crohn's disease, unspecified, without complications (principal)
CPT/HCPCS: 80053; 85025; 85651; 86140

== ENCOUNTER 2017-02-24 08:21 | Day surgery (SDC) | payer BC ==
[2017-02-21 07:46] LABS: BASOPHILS % 0.2 % (0.0-2.0); EOSINOPHILS # 0.1 10^3/ul (0.0-0.5); EOSINOPHILS % 2.3 % (0.0-7.0); HEMATOCRIT 38.7 % (42.0-52.0); LYMPHOCYTES # 1.4 10^3/ul (0.8-2.9); LYMPHOCYTES % 27.7 % (15.0-51.0); MEAN CORPUSCULAR HEMOGLOBIN 32.7 pg (29.0-33.0); MEAN CORPUSCULAR HGB CONC 33.6 g/dl (32.0-37.0); MEAN CORPUSCULAR VOLUME 97.2 fl (82.0-101.0); MEAN PLATELET VOLUME 10.3 fl (7.4-10.4); MONOCYTE # 0.4 10^3/ul (0.3-0.9); MONOCYTES % 8.5 % (0.0-11.0); NEUTROPHIL # 3.2 10^3/ul (1.6-7.5); NEUTROPHILS % 61.1 % (39.0-77.0); PLATELET COUNT 143 10^3/UL (140-415); RED BLOOD COUNT 3.98 10^6/ul (4.70-6.10); WHITE BLOOD COUNT 5.2 10^3/ul (4.8-10.8)
--- NOTE | 2017-02-21 08:01 | RADRPT ---
PROCEDURE: XR Chest. CLINICAL INDICATION: Chest pain, preop TECHNIQUE: PA and Lateral views of the chest were obtained. COMPARISON: 05/26/2016 FINDINGS: The cardiomediastinal silhouette is within normal limits. The lungs are clear. No signs of pleural fluid or pneumothorax are seen. An old compression deformity is again seen involving T12. IMPRESSION: 1. No acute cardiopulmonary abnormalities are identified. 2. An old compression deformity is again seen involving T12. RPTAT:AAJJ Physician Estelle Date Time Electronically viewed and signed by Shilo Miller Physician on 02/21/2017 08:00 /
[2017-02-21 08:13] LABS: INR 0.84; PROTIME 11.5 Sec (12.2-14.2); PT RATIO 0.9
[2017-02-21 08:21] LABS: ALBUMIN 4.3 g/dl (3.3-4.9); ALBUMIN/GLOBULIN RATIO 1.22; BILIRUBIN,INDIRECT 0.2 mg/dl (0-1.1); BILIRUBIN,TOTAL 0.2 mg/dl (0.2-1.3); MAGNESIUM 1.9 mg/dl (1.7-2.5); TOTAL PROTEIN 7.8 g/dl (6.1-8.1)
[2017-02-21 08:22] LABS: CALCIUM 9.9 mg/dl (8.4-10.2); CREATININE 1.15 mg/dl (0.61-1.24); POTASSIUM 4.2 mmol/L (3.5-5.1)
[2017-02-21 09:33] LABS: ADD UMIC NO; UR ASCORBIC ACID NEGATIVE (NEGATIVE); UR BILIRUBIN (Dip) NEGATIVE (NEGATIVE); UR BLOOD (Dip) NEGATIVE (NEGATIVE); UR CLARITY CLEAR (CLEAR); UR COLOR YELLOW (YELLOW); UR GLUCOSE (Dip) NEGATIVE (NEGATIVE); UR KETONES (Dip) NEGATIVE (NEGATIVE); UR LEUKOCYTE ESTERASE (Dip) NEGATIVE Leu/ul (NEGATIVE); UR MUCUS FEW /HPF (NONE SEEN); UR NITRITE (Dip) NEGATIVE (NEGATIVE); UR RBC 2 /HPF (0-5); UR SPECIFIC GRAVITY (Dip) 1.026 (1.003-1.030); UR TOTAL PROTEIN (Dip) NEGATIVE (NEGATIVE); UR UROBILINOGEN (Dip) 1+ mg/dL (NEGATIVE)
--- NOTE | 2017-02-22 06:03 | CONS ---
DATE OF ADMISSION: 02/24/2017 DATE OF CONSULTATION: 02/18/2017 PREOPERATIVE CONSULTATION DATE OF SURGERY: 02/24/2017. Thank you very much for allowing me to evaluate the above patient, a 61-year-old male who is to unde rgo right shoulder surgery. HISTORICAL EVENTS: As you well know, this patient has had progressive disabling pain involving his right shoulder and after your evaluation and appropriate imaging, he elected to proceed with surgery . Today, he denies cough, wheezing, shortness of breath. He denies substernal chest pain, radiatin g neck, arm or jaw discomfort. He denies nausea, vomiting or abdominal pain, has some intermittent loose stools and at times bright red blood per rectum without vomiting or nausea. PRESENT MEDICATIONS: 1. Pentasa 500 mg 2 tablets t.i.d. 2. Nexium 40 mg per day. 3. AndroGel 2 pumps daily. 4. Lexapro 20 mg per day. 5. Benicar HCT 20/12.5 per day. 6. Cialis 5 mg p.r.n. 7. Terazosin 5 mg per day. 8. Stelara 145 mg every 8 weeks. PAST MEDICAL HISTORY: Includes: 1. Crohn disease, now minimally symptomatic. 2. History of duodenitis and gastritis as revealed by endoscopy 07/2013 3. Right knee surgery x2. 4. Stress echo in 2009 that was normal. 5. Remote history of paroxysmal atrial tachycardia. 6. Hypogonadism with low testosterone levels left shoulder repair in 12/23/2016. 7. History of sleep apnea, now using CPAP device. ALLERGIES OR INTOLERANCE'S: INCLUDE ASPIRIN - THIS PRODUCES "SKIN ERUPTION." FAMILY HISTORY: Positive for COPD. SOCIAL HISTORY: He is a nonsmoker. He drinks alcohol socially. PHYSICAL EXAMINATION: GENERAL: [place] male, overweight, in no acute distress. VITAL SIGNS: BP 101/71 sitting, standing 100/72, respirations were 18. He was afebrile. EYES: Extraocular muscles were full. NOSE, MOUTH, AND THROAT: Normal. NECK: Supple. There was no jugular venous distention, thyroid enlargement or adenopathy. Carotids 2+, no bruits. LUNGS: Clear. HEART: Rhythm regular, no murmur. No third or fourth sound. ABDOMEN: Nontender. Liver and spleen were not palpable. No masses or tenderness were noted. EXTREMITIES: No edema, no calf tenderness. Pulses 2+. NEUROLOGIC: No lateralizing motor weakness. Pending laboratory studies, I forsee no problems with the planned surgical intervention. Dictated By: KELI CHRISTENSEN/NIRU Conf#: [id number] DID#: [id number]
--- NOTE | 2017-02-22 21:45 | RADRPT ---
Vent Rate: 58 bpm RR Interval: 0 msec HI Interval: 140 msec QRS Duration: 100 msec QT Interval: 394 msec QTC Interval: 386 msec P-R-T [place]: 43 - 0 - 52 degrees Sinus bradycardia Otherwise normal ECG Electronically Signed By: Collin Neves [id number]
[2017-02-23 11:48] VITALS: BMI 30.2
[~2017-02-24] VITALS: Ht 172.7 cm; Wt 95.1 kg
[2017-02-24] VITALS (14 sets, daily range): BP systolic 109–130; BP diastolic 56–86; PULSE 60–92; RESP 11–33; Ht 172.7 cm; Wt 95.1 kg
--- NOTE | 2017-02-24 04:59 | HPN ---
Date/Time of Note Date/Time of Note DATE: 02/24/17 TIME: 04:59 Interval H&P Admission Note Pt. seen H&P reviewed: No system changes HUNTER LINDSEY MD Feb 24, 2017 04:59
[~2017-02-24 08:21] MED LIST changes: +ATROPINE 1 MG/10 ML SYRINGE IV PRN; +CEFAZOLIN 1 GM INJ ONE; +CEFAZOLIN 2 GM/50 ML (PMX) 50 ML IVPB SCH; +DEXAMETHASONE 2 MG TAB PO SCH; +DIPHENHYDRAMINE 50 MG INJ IV PRN; +EPHEDrine SULFATE 50 MG/5 ML SYG IV PRN; +FENTAnyl 50 MCG/ML VIAL IV PRN; +FENTAnyl 50 MCG/ML VIAL ONE; +GABAPENTIN 300 MG CAP PO SCH; +GLYCOPYRROLATE 0.4 MG INJ ONE; +HYDROmorphONE (0.2 MG/ML) 10ML SYG IV PRN; +LABETALOL HCL 20MG INJ IV PRN; +LIDOCAINE 2% (SDV) 5 ML INJ ONE; +MEPERIDINE 25 MG INJ IV PRN; +MIDAZOLAM 1 MG/ML 2 ML INJ IV PRN; +MIDAZOLAM 1 MG/ML 2 ML INJ ONE; +NEOSTIGMINE 3 MG/3 ML SYRINGE ONE; +ONDANSETRON 4 MG INJ IV PRN; +OXYCODONE/ACETAMINOPHEN (5/325) TAB PO PRN; +PROPOFOL 20 ML ONE; +ROCURONIUM 50 MG INJ ONE; +ROPIVACAINE 0.5 % 30 ML VIAL ONE; +SUCCINYLCHOLINE CHLORIDE 100 MG/5 ML SYG IV ONE; +SUGAMMADEX SODIUM 200 MG/2 ML VIAL IV ONE; +TRANEXAMIC ACID 1,000 MG in DEXTROSE 5% 100 ML IVPB SCH; +hydrALAzine 20 MG INJ IV PRN; +morphine (1 MG/ML) 10ML SYRINGE IV PRN; +morphine SULFATE/PF (10 MG/10 ML) INJ ONE
[2017-02-24] MEDS ORDERED: LABETALOL HCL 20MG INJ ONE (08:26)
[2017-02-24] MEDS ORDERED: ESOM20CA PO (08:44)
[2017-02-24] MEDS ORDERED: MESA500C PO (08:45)
[2017-02-24] MEDS ORDERED: USTE90DI SQ (08:46)
[2017-02-24] MEDS ORDERED: OLME1TAB83 PO (08:49)
[2017-02-24] MEDS ORDERED: ESCI20TA PO (08:49)
[2017-02-24] MEDS ORDERED: LORA10TA3 PO (08:50)
[2017-02-24] MEDS ORDERED: TERA5CAP3 PO (08:50)
[2017-02-24] MEDS ORDERED: UBID100C24 PO (08:51)
[2017-02-24] MEDS ORDERED: MULT-896 PO (08:51)
[2017-02-24] MEDS: traMADol 50 MG TAB PO SCH ×2 (09:02→13:45)
[2017-02-24] MEDS ORDERED: ONDANSETRON 4 MG INJ ONE (09:19)
[2017-02-24] MEDS ORDERED: DEXAMETHASONE 4 MG/ML 1 ML INJ ONE (09:19)
[2017-02-24] MEDS ORDERED: LIDOCAINE 4% CR ONE (09:35)
[2017-02-24] MEDS ORDERED: EPINEPHrine 1 MG/ML 30 ML INJ ONE (11:07)
--- NOTE | 2017-02-24 12:32 | OPR ---
Date/Time of Note Date/Time of Note DATE: 02/24/17 TIME: 12:26 Operative Report Procedure Date: Feb 24, 2017 Preoperative Diagnosis Right shoulder rotator cuff tear Postoperative Diagnosis 1. Right shoulder rotator cuff tear 2. Right shoulder acromioclavicular joint arthritis 3. Right shoulder labral tearing and biceps tendon tearing with synovitis 4. Right shoulder impingement Operation/Procedure Performed 1. Right shoulder arthroscopic rotator cuff repair 2. Right shoulder arthroscopic distal clavicle excision 3. Right shoulder extensive debridement of glenohumeral joint 4. Right shoulder arthroscopic acromioplasty with coracoacromial ligament release Surgeon see signature line Civil Transportation Engineer Kevin Lindo PA-C Anesthesia Type: general Estimated Blood Loss: 0 - 10 ml's Transfusion none Specimen None Grafts/Implants none Complications none Pt Condition Post Procedure: stable Disposition: PACU Procedure Description ADVERTISING SALES CONSULTANT SURGEON: Kevin Lindo PA-C was asked to be present at my request as a result of the significant surgical complexity associated with this procedure. Specifically, the arthroscopic r labral knot-tying requires expert assistance with respect to the positioning of the arthroscope, which is a 70- degree arthroscope, while the surgeon exchanges instruments to perform the rotator cuff repair. In my opinion, the assistance offered by a regional vice president surgical sales is not sufficient as a result of their lack of training with these instruments. Kevin Lindo PA-C should therefore be compensated for their time. PROCEDURE: Following the administration of general anesthesia supplemented with a scalene block the patient was then placed in the left lateral decubitus position. An axillary fold was placed and all prominences were padded. Sterile prep and drape was then undertaken. Anterior and posterior glenohumeral portals were then established glenohumeral arthroscopy revealed a very large supraspinatus tendon tear measuring 3 cm from front to back in 1 cm from medial to lateral with minimal retraction. There is evidence of a previous tear of the biceps with the intra-articular portion being frayed and within the glenohumeral joint. There is extensive tearing of the superior labrum. The articular cartilage of the glenoid and humerus appeared relatively normal. There was moderate to severe synovitis through the anterior compartment. The subscapularis had a partial tear anteriorly with no complete detachment. An extensive debridement of the labrum and the extensive debridement of the biceps was then undertaken down to stable tissue. The tearing and debridement was from the 10:00 to 3 o'clock position and included the superior portion which had the biceps within it. Following the debridement, the subacromial space was then entered. Very significant reactive tissue was then noted and subsequently a coracoacromial ligament release was then performed a large anterior acromial spur was then resected and an acromioplasty was completed by beveling back the anterior acromion about 7-8 mm back to a flat surface. The distal clavicle was then skeletonized and the clavicle seem to have severe arthritic changes. The distal clavicle was then resected for a distance of 10 mm with a good decompression. Attention was then directed to the rotator cuff the rotator cuff edges were then debrided down to stable tissue in the tuberosity was decorticated. A 5.5 mm triple loaded anchor was then placed in the tuberosity the sutures were passed in a simple fashion using sliding locking knots a complete rotator cuff repair was then completed. The arthroscopic equipment was then removed, following thorough irrigation of the joint to assure that all bony debris was cleared. The wounds were closed using #4-0 Monocryl sutures, followed by a sterile dressing. The patient was then extubated and transported to the recovery room in stable condition, having tolerated the procedure well. TOURNIQUET TIME: [] TRANSFUSION REQUIRED: [] SPECIMENS: [] GRAFTS/IMPLANTS: [] TUBES/DRAINS: [] COMPLICATIONS: [] PT. CONDITION POST PROCEDURE: [] DISPOSITION: [] HUNTER LINDSEY MD Feb 24, 2017 12:32
--- NOTE | 2017-02-24 12:32 | PDOCDIS ---
Discharge Instructions DIAGNOSIS Discharge Diagnosis Rotator cuff tear right shoulder CONDITION Patient Condition: Good HOME CARE INSTRUCTIONS: Diet Instructions: Regular ACTIVITY: Activity Restrictions: Slowly Increase Activity Keep Limb Elevated Bathing Restrictions: Shower FOLLOW UP/APPOINTMENTS Follow-up Plan 2 weeks SCHOOL/WORK RELEASE May return to School/Work with: With Restrictions School/Work Release Comment: 5 pounds tabletop activity for 6 weeks HUNTER LINDSEY MD Feb 24, 2017 12:32
== END 2017-02-24 14:55 | disposition home or self-care (01) ==
LOC: SDS 08:21
PROVIDERS: ATTEND Orthopaedic Surgery
DX: S46.011A Strain of muscle(s) and tendon(s) of the rotator cuff of right shoulder, initial encounter (principal); M75.41 Impingement syndrome of right shoulder; M19.011 Primary osteoarthritis, right shoulder; E66.9 Obesity, unspecified; G47.30 Sleep apnea, unspecified; I10 Essential (primary) hypertension; X58.XXXA Exposure to other specified factors, initial encounter; Y93.89 Activity, other specified; Y92.89 Other specified places as the place of occurrence of the external cause; Y99.8 Other external cause status
CPT/HCPCS: 29824; 29826; 29827; 71020; 80053; 81003; 83735; 85025; 85610; 85730; 93005; J0171; J0690; J1100; J2250; J2274; J2405; J2795; J3010; J2710

== ENCOUNTER → 2017-12-09 | Outpatient (CLI) | END | disposition home or self-care (01) ==

== ENCOUNTER → 2018-01-25 | Outpatient (CLI) | END | disposition home or self-care (01) ==

== ENCOUNTER → 2018-02-02 | Outpatient (CLI) | END | disposition home or self-care (01) ==

== ENCOUNTER → 2018-02-03 | Outpatient (CLI) | END | disposition home or self-care (01) ==

== ENCOUNTER → 2018-05-26 | Outpatient (CLI) | payer BC ==
[~2018-05-26] MED LIST changes: -ATROPINE 1 MG/10 ML SYRINGE IV PRN; -CEFAZOLIN 1 GM INJ ONE; -CEFAZOLIN 2 GM/50 ML (PMX) 50 ML IVPB SCH; -CHOL100062 PO; -DEXAMETHASONE 2 MG TAB PO SCH; -DIPHENHYDRAMINE 50 MG INJ IV PRN; -EPHEDrine SULFATE 50 MG/5 ML SYG IV PRN; +ESCI20TA PO; +ESOM20CA PO; -FENTAnyl 50 MCG/ML VIAL IV PRN; -FENTAnyl 50 MCG/ML VIAL ONE; -GABAPENTIN 300 MG CAP PO SCH; -GLYCOPYRROLATE 0.4 MG INJ ONE; -HYDROmorphONE (0.2 MG/ML) 10ML SYG IV PRN; -LABETALOL HCL 20MG INJ IV PRN; -LIDOCAINE 2% (SDV) 5 ML INJ ONE; +LORA10TA3 PO; -MEPERIDINE 25 MG INJ IV PRN; +MESA500C PO; -MIDAZOLAM 1 MG/ML 2 ML INJ IV PRN; -MIDAZOLAM 1 MG/ML 2 ML INJ ONE; +MULT-896 PO; -NEOSTIGMINE 3 MG/3 ML SYRINGE ONE; +OLME1TAB83 PO; -OLME40TA14 PO; -ONDANSETRON 4 MG INJ IV PRN; -OXYCODONE/ACETAMINOPHEN (5/325) TAB PO PRN; -PANT40TA3 PO; -PRED20TA PO; -PROPOFOL 20 ML ONE; -ROCURONIUM 50 MG INJ ONE; -ROPIVACAINE 0.5 % 30 ML VIAL ONE; -SUCCINYLCHOLINE CHLORIDE 100 MG/5 ML SYG IV ONE; -SUGAMMADEX SODIUM 200 MG/2 ML VIAL IV ONE; -TEST1.25 TD; -TRANEXAMIC ACID 1,000 MG in DEXTROSE 5% 100 ML IVPB SCH; +UBID100C24 PO; +USTE90DI SQ; -hydrALAzine 20 MG INJ IV PRN; -morphine (1 MG/ML) 10ML SYRINGE IV PRN; -morphine SULFATE/PF (10 MG/10 ML) INJ ONE
== END | disposition home or self-care (01) ==
LOC: LAB 07:15
PROVIDERS: ATTEND Internal Medicine Gastroenterology
DX: K50.00 Crohn's disease of small intestine without complications (principal); K50.90 Crohn's disease, unspecified, without complications; Z86.010 Personal history of colon polyps
CPT/HCPCS: 82306; 85025; 85651; 86140

== ENCOUNTER → 2018-07-12 | Outpatient (CLI) | payer BC | END | disposition home or self-care (01) | LOC: LAB 07:14 | PROVIDERS: ATTEND Internal Medicine | DX: Z01.818 Encounter for other preprocedural examination (principal) | CPT/HCPCS: 80053; 80061; 81003; 82306; 82550; 84153; 84154; 84403; 84443; 85025; 85610; 85730 ==

== ENCOUNTER 2018-07-18 10:10 | Day surgery (SDC) | payer BC ==
[2018-07-17 12:04] VITALS: BMI 32.0
[2018-07-18] VITALS (18 sets, daily range): BP systolic 115–163; BP diastolic 64–92; PULSE 64–112; RESP 10–19; Ht 170.2 cm; Wt 98.9 kg
[~2018-07-18] VITALS: Ht 170.2 cm; Wt 98.9 kg
--- NOTE | 2018-07-18 06:11 | HPN ---
Date/Time of Note Date/Time of Note DATE: 07/18/18 TIME: 06:11 Interval H&P Admission Note Pt. seen H&P reviewed: No system changes HUNTER LINDSEY MD Jul 18, 2018 06:11
--- NOTE | 2018-07-18 08:37 | OPR ---
Date/Time of Note Date/Time of Note DATE: 07/18/18 TIME: 08:35 Operative Report Procedure Date: Jul 18, 2018 Preoperative Diagnosis Left shoulder rotator cuff tear Postoperative Diagnosis 1. Left shoulder supraspinatus tendon tear 2. Left shoulder acromioclavicular joint arthritis 3. Left glenohumeral labral tearing and posttraumatic arthritis Operation/Procedure Performed 1. Left shoulder arthroscopic rotator cuff repair 2. Left shoulder arthroscopic distal clavicular excision 3. Left shoulder extensive debridement of glenohumeral joint Surgeon see signature line Marketing Trainee Kevin Lindo PA-C Anesthesia Type: general Estimated Blood Loss: minimal Transfusion none Specimen none Grafts/Implants See op note Complications none Pt Condition Post Procedure: stable Disposition: PACU Procedure Description ADAPTED PHYSICAL EDUCATION SPECIALIST SURGEON: Kevin Lindo PA-C was asked to be present at my request as a result of the complexity associated with this procedure including positioning of the extremities, manipulation of the arthroscope and assistance with time. In my opinion the assistance offered by a surgical asst is insufficient and Robinabronwyn should be compensated for his time. PROCEDURE IN DETAIL: Following the administration of general anesthesia supplemented with a peripheral nerve block for postoperative pain control, the patient was examined under anesthesia. Examination of the left shoulder revealed significant stiffness with about 130 degrees of forward flexion and 80 degrees abduction. A gentle manipulation was then undertaken and passively she was able to be flexed up to about 150 degrees, abduction 110 degrees, external rotation 80 degrees and internal rotation 20 degrees. Several significant adhesions were noted to be released. The patient was then placed in the right lateral decubitus position. Sterile prep and drape was then undertaken of the left shoulder. Anterior and posterior glenohumeral portals were established. Glenohumeral arthroscopy revealed that the humeral and glenoid articular cartilage had some diffuse grade 3 changes throughout. In addition, the humeral head had diffuse grade 3 and 4 changes within the area anterolaterally over the biceps tendon there was grade 3 in nature. In addition, inferiorly, there were several osteophytes forming. There is diffuse grade 2 change lower in the lower half as well. The superior labrum was diffusely torn with extensive fraying that extended from 9:00 to the 3 o'clock position. The prior biceps release was noted. The subscapularis was visualized and this was all with a solid attachment. The prior repair remained intact. Further evaluation of the supraspinatus revealed complete recurrent tear, which was relatively large with extensive frayed tissue extending into the infraspinatus. The prior repair had failed. The sutures were still in place and the tissue retracted. The superior labrum then debrided extensively from the 9:00 to the 3 o'clock position was undertaken down to stable tissue. Severe synovitis was also debrided down to stable tissue. In addition, a very significant debridement and chondroplasty of the humeral head was undertaken down to stable tissue. In the end, the superior half of the humeral head had grade 3 changes with a small area of grade 4 superiorly. The subacromial space was then entered and very severe bursal reactive tissue was noted. There was a thickened coracoacromial ligament, with no significant acromial prominence noted. The outer surface of the rotator cuff was then inspected. Severe bursal reactive tissue was debrided. Following extensive debridement of the bursa, a large tear of the infra and supraspinatus was then exposed. Specifically, this was a large tear measuring approximately 2 cm from anterior to posterior and 4 cm medially. A portion of the central retraction was up to the base of the glenoid. The subacromial space was then further evaluated medially. The acromioclavicular joint was then skeletonized and a significant inferior osteophyte was noted. The AC joint capsule was then completely open and prepared and the distal clavicle was skeletonized for a distance of 10 mm. The bur was then inserted and 10 mm of the distal clavicle was then excised. The rotator cuff repair was then undertaken. Specifically, one [id number] sut ure was placed at the apex of the retracted tear. This was a #2 permanent suture. It was tied in a sliding, locking form with a very solid partial closure. Following this, a 5.5 mm, triple loaded titanium anchor was then placed in the tuberosity. The 3 sutures were then passed in a simple fashion with sliding, locking knots being employed to reapproximate the rotator cuff in a anatomic position. The joint was then thoroughly irrigated bony debris removed, the deep tissues were approximated using 4-0 Monocryl, followed by a sterile dressing. A sling was then applied. The patient was awakened and transported to the recovery room in stable condition. HUNTER LINDSEY MD Jul 18, 2018 08:37
[~2018-07-18 10:10] MED LIST changes: +CEFAZOLIN 1 GM INJ ONE; +DEXAMETHASONE 4 MG/ML 5 ML INJ ONE; +FENTAnyl 50 MCG/ML VIAL ONE; +GLYCOPYRROLATE 0.4 MG INJ ONE; +MIDAZOLAM 1 MG/ML 2 ML INJ ONE; +NEOSTIGMINE 3 MG/3 ML SYRINGE ONE; +ONDANSETRON 4 MG INJ ONE; +PROPOFOL 20 ML ONE; +ROCURONIUM 50 MG INJ ONE
[2018-07-18] MEDS ORDERED: hydrALAzine 20 MG INJ ONE (10:19)
[2018-07-18] MEDS ORDERED: LOPE-123 PO (10:32)
[2018-07-18] MEDS ORDERED: ESCI20TA PO (10:32)
[2018-07-18] MEDS ORDERED: VITA1TAB83 PO (10:32)
[2018-07-18] MEDS ORDERED: FISH1CAP PO (10:32)
[2018-07-18] MEDS ORDERED: MV-M1TAB2 PO (10:32)
[2018-07-18] MEDS ORDERED: UBID100C24 PO (10:32)
[2018-07-18] MEDS ORDERED: USTE90DI SQ (10:32)
[2018-07-18] MEDS ORDERED: TERA5CAP3 PO (10:32)
[2018-07-18] MEDS ORDERED: ATOR10TA65 PO (10:32)
[2018-07-18] MEDS ORDERED: PANT40TA3 PO (10:32)
[2018-07-18] MEDS ORDERED: OLME20TA20 PO (10:32)
[2018-07-18] MEDS ORDERED: ASPI-903 PO (10:40)
[2018-07-18] MEDS ORDERED: GABAPENTIN 300 MG CAP PO ONE (11:00)
[2018-07-18] MEDS ORDERED: TRANEXAMIC ACID 1GM/100ML(PMX) 100 ML IVPB ONE (11:00)
[2018-07-18] MEDS ORDERED: CEFAZOLIN 2 GM/50 ML (PMX) 50 ML IVPB ONE (11:00)
[2018-07-18] MEDS ORDERED: DEXAMETHASONE 1 MG TAB PO ONE (11:00)
--- NOTE | 2018-07-18 11:33 | PREAC ---
Date/Time of Note Date/Time of Note DATE: 07/18/18 TIME: 11: Anesthesia Eval and Record Evaluation Time Pre-Procedure Interview DATE: 07/18/18 TIME: 11: Age 63 Sex male NPO: 8 hrs Preoperative diagnosis L rotator cuff tear Planned procedure Left operative shoulder arthroscopy, rotator cuff repair Past Medical History Past Medical History: Includes Cardio: HTN, Dyslipidemia, CAD (hx stent placement (in the [facility]) last year) GI: GERD, Other (Crohn's disease) Psych: Anxiety Surgery & Anesthesia Issues No known issue (R knee sx, tonsillectomy, R shoulder/L shoulder sx, partial sigmoidectomy) Meds Anticoagulation: Yes (aspirin 81 mg) Beta Arsenio within 24 hr: No Reason Beta Arsenio not given: Pt. not on B-Arsenio Reported Medications Aspirin* (Aspirin* Chew) 81 Mg Tab.chew, 81 MG PO DAILY, TAB.CHEW NO ALLERGIC REACTION PER PATIENT. 07/18/18 Fish Oil/Dha/Epa (FISH OIL 1,200 MG FISH OIL) 1 Each Capsule, 1 CAP PO QPM, CAP 07/18/18 Vitamin B Complex (B Complex # 1) 1 Each Tablet, 100 MG PO BID, TAB 07/18/18 Ubidecarenone (Coq-10) 100 Mg Capsule, 100 MG PO QAM, CAP 07/18/18 Ustekinumab (Stelara) 90 Mg/1 Ml Disp.syrin, 90 MG SQ EVERY 8 WEEKS 07/18/18 Loperamide Hcl* (Loperamide Hcl*) 2 Mg Cap, 2 MG PO BID, CAP 07/18/18 Pantoprazole* (Protonix*) 40 Mg Tablet.dr, 40 MG PO DAILY, TAB 07/18/18 Escitalopram Oxalate* (Lexapro*) 20 Mg Tablet, 20 MG PO DAILY, #30 TAB 07/18/18 Terazosin Hcl* (Terazosin Hcl*) 5 Mg Capsule, 5 MG PO HS, CAP 07/18/18 Atorvastatin Calcium (Atorvastatin Calcium) 10 Mg Tablet, 10 MG PO QHS, #30 TAB 07/18/18 Olmesartan Medoxomil (Benicar) 20 Mg Tablet, 20 MG PO DAILY, #30 TAB 07/18/18 Multivit-Min/FA/Lycopen/Lutein (Centrum Silver Men Tablet) 1 Each Tablet, 1 EACH PO DAILY, TAB 02/24/17 Loratadine* (Loratadine*) 10 Mg Tablet, 10 MG PO DAILY, #30 TAB 02/24/17 Mesalamine* (Pentasa*) 500 Mg Capsule.sa, 1500 MG PO BID, CAP 02/24/17 Discontinued Reported Medications Mv-Mn/Fa/Coq10/Lycopene/Lutein (THERAGRAN-M PREMIER 50+ CAPLET) 1 Each Tablet, 1 TAB PO DAILY, TAB 07/18/18 Ubidecarenone (Coq-10) 100 Mg Capsule, 100 MG PO DAILY, CAP 02/24/17 Terazosin Hcl* (Terazosin Hcl*) 5 Mg Capsule, 5 MG PO HS, CAP 02/24/17 Escitalopram Oxalate* (Lexapro*) 20 Mg Tablet, 20 MG PO DAILY, #30 TAB 02/24/17 Olmesartan/Hydrochlorothiazide (Olmesartan-Hctz 40-12.5 mg Tab) 1 Each Tablet, 1 EACH PO DAILY, TAB 02/24/17 Ustekinumab (Stelara) 90 Mg/1 Ml Disp.syrin, 90 MG SQ every 8 weeks 02/24/17 Esomeprazole Mag Trihydrate (Nexium) 20 Mg Capsule.dr, 10 MG PO BID, #30 CAP 02/24/17 Terazosin Hcl* (Terazosin Hcl*) 5 Mg Capsule, 5 MG PO HS, CAP 05/25/16 Current Medications Cefazolin Sodium/ Dextrose 50 ml @ 100 mls/hr PRE-OP ONCE IVPB ; Start 07/18/18 at 11:00; Stop 07/18/18 at 11:29 Tranexamic Acid 100 ml @ 200 mls/hr Pre-op ONCE IVPB ; Start 07/18/18 at 11:00; Stop 07/18/18 at 11:29 Meds reviewed: Yes Allergies Coded Allergies: aspirin (Verified Allergy, Mild, 07/18/18) POSSIBLE ALLERGY TO ASPIRIN AT 325 BUT NO ISSUES ON LOW DOSE OF 81 MG-- PT CURRENTLY TAKING THAT DOSE Allergies Reviewed: Yes Labs/Studies Labs Reviewed: Reviewed by anesthesiologist test: N/A Studies: ECG (sr, abnormal R wav progression, L axis deviation), CXR ( Stable chest without evidence of active cardiopulmonary disease.), 2D Echo (EF 60% last year) Pre-procedure Exam Last vitals Vital Signs Date Temp Pulse Resp B/P (MAP) Pulse Ox O2 O2 Flow FiO2 Time Delivery Rate 07/18/18 97.7 64 16 121/73 95 11:02 (89) Airway: Adequate mouth opening, Adequate thyromental dist Mallampati: Mallampati II Teeth: Normal Lung: Normal Heart: Normal ASA Physical Status ASA physical status: 3 Emergency: None Planned Anesthetic General/MAC: ETT Nerve block: Brachial plexus (left) Pre-operative Attestations Prior to commencing anesthesia and surgery, the patient was re-evaluated, there was verification of: *The patient's identity *The results of appropriate recent lab work and preoperative vital signs *The above evaluation not changing prior to induction *Anesthetic plan, risk benefits, alternative and complications discussed with patient/family; questions answered; patient/family understands, accepts and wishes to proceed. ANASTASIYA COHEN Jul 18, 2018 11:33
[2018-07-18] MEDS ORDERED: ROPIVACAINE 0.5 % 30 ML VIAL ONE (11:42)
[2018-07-18] MEDS ORDERED: EPINEPHrine 1 MG/ML 30 ML INJ IRR ONE (12:00)
[2018-07-18] MEDS ORDERED: MIDAZOLAM 1 MG/ML 2 ML INJ IV PRN (12:30)
[2018-07-18] MEDS ORDERED: EPHEDrine SULFATE 50 MG/5 ML SYG IV PRN (12:30)
[2018-07-18] MEDS ORDERED: DIPHENHYDRAMINE 50 MG INJ IV PRN (12:30)
[2018-07-18] MEDS ORDERED: HYDROmorphONE 1 MG/5 ML IV SYRINGE IV PRN ×3 (12:30)
[2018-07-18] MEDS ORDERED: hydrALAzine 20 MG INJ IV PRN (12:30)
[2018-07-18] MEDS ORDERED: LABETALOL HCL 20MG INJ IV PRN (12:30)
[2018-07-18] MEDS ORDERED: OXYCODONE/ACETAMINOPHEN (5/325) TAB PO PRN ×2 (12:30)
[2018-07-18] MEDS ORDERED: FENTAnyl 50 MCG/ML VIAL IV PRN ×3 (12:30)
[2018-07-18] MEDS ORDERED: MEPERIDINE 25 MG INJ IV PRN (12:30)
[2018-07-18] MEDS ORDERED: TRIMETHOBENZAMIDE 100 MG/ML VIAL IM PRN (12:30)
[2018-07-18] MEDS ORDERED: IPRATROPIUM (NEB) 0.5 MG/2.5 ML AMP HHN PRN (12:30)
[2018-07-18] MEDS ORDERED: ALBUTEROL 0.083% (NEB) 2.5 MG/3 ML AMP HHN PRN (12:30)
[2018-07-18] MEDS ORDERED: ONDANSETRON 4 MG INJ IV PRN (12:30)
--- NOTE | 2018-07-18 12:55 | PDOCDIS ---
Discharge Instructions DIAGNOSIS Discharge Diagnosis Rotator cuff tear CONDITION [id number] Patient Condition: [id number] Good HOME CARE INSTRUCTIONS: [id number] Diet Instructions: [id number] Regular ACTIVITY: [id number] Activity Restrictions: [id number] No Restrictions Keep Limb Elevated [id number] Bathing Restrictions: [id number] Shower FOLLOW UP/APPOINTMENTS Follow-up Plan 2 weeks in the office SCHOOL/WORK RELEASE May return to School/Work with: With Restrictions School/Work Release Comment: 5 pound tabletop usage for 6 weeks HUNTER LINDSEY MD Jul 18, 2018 12:54
--- NOTE | 2018-07-19 20:06 | PAC ---
Date/Time of Note Date/Time of Note DATE: 07/19/18 TIME: 20:06 Post-Anesthesia Notes Post-Anesthesia Note Last documented vital signs Vital Signs Date Temp Pulse Resp B/P (MAP) Pulse Ox O2 O2 Flow FiO2 Time Delivery Rate 07/18/18 97.2 92 18 163/92 100 Room Air 14:42 (115) Activity: WNL Respiratory function: WNL Cardiovascular function: WNL Mental status: Baseline Pain reasonably controlled: Yes Hydration appropriate: Yes Nausea/Vomiting absent: Yes Dillon Denton M.D. Jul 19, 2018 20:06
== END 2018-07-18 15:40 | disposition home or self-care (01) ==
LOC: SDS 10:10
PROVIDERS: ATTEND Orthopaedic Surgery
DX: M75.102 Unspecified rotator cuff tear or rupture of left shoulder, not specified as traumatic (principal); M13.812 Other specified arthritis, left shoulder; S43.492D Other sprain of left shoulder joint, subsequent encounter; X58.XXXD Exposure to other specified factors, subsequent encounter; I10 Essential (primary) hypertension; I25.10 Atherosclerotic heart disease of native coronary artery without angina pectoris
CPT/HCPCS: 29823; 29824; 29827; 71045; J0171; J0360; J0690; J1100; J2250; J2405; J2710; J2795; J3010

== ENCOUNTER 2018-10-10 11:08 | Day surgery (SDC) | payer BC ==
[~2018-10-10] VITALS: Ht 172.7 cm; Wt 95.1 kg
[~2018-10-10 11:08] MED LIST changes: +ASPI-903 PO; +ATOR10TA65 PO; -CEFAZOLIN 1 GM INJ ONE; -DEXAMETHASONE 4 MG/ML 5 ML INJ ONE; -ESOM20CA PO; -FENTAnyl 50 MCG/ML VIAL ONE; +FISH1CAP PO; -GLYCOPYRROLATE 0.4 MG INJ ONE; +LOPE-123 PO; -MIDAZOLAM 1 MG/ML 2 ML INJ ONE; -NEOSTIGMINE 3 MG/3 ML SYRINGE ONE; -OLME1TAB83 PO; +OLME20TA20 PO; -ONDANSETRON 4 MG INJ ONE; +PANT40TA3 PO; -PROPOFOL 20 ML ONE; -ROCURONIUM 50 MG INJ ONE; +VITA1TAB83 PO
[2018-10-10 11:58] VITALS: Ht 172.7 cm; Wt 95.1 kg
[2018-10-10] MEDS ORDERED: CALCIUM (12:07)
[2018-10-10] MEDS ORDERED: VITAMIN D (12:07)
[2018-10-10 12:41] VITALS: BP 127/73; PULSE 51; RESP 17
[2018-10-10] MEDS ORDERED: LIDOCAINE 1% (MDV) 20 ML INJ ONE (12:56)
[2018-10-10] MEDS ORDERED: PROPOFOL 20 ML ONE (12:56)
[2018-10-10] MEDS ORDERED: FENTAnyl 50 MCG/ML VIAL ONE (12:56)
[2018-10-10] MEDS ORDERED: MIDAZOLAM 1 MG/ML 2 ML INJ ONE (12:56)
--- NOTE | 2018-10-10 13:08 | PREAC ---
Date/Time of Note Date/Time of Note DATE: 10/10/18 TIME: 13:07 Anesthesia Eval and Record Evaluation Time Pre-Procedure Interview DATE: 10/10/18 TIME: 13:07 Age 63 Sex male NPO: 8 hrs Preoperative diagnosis screening Planned procedure colonoscopy Past Medical History Past Medical History: Includes Cardio: HTN, Dyslipidemia, CAD Pulm: Sleep Apnea GI: GERD Psych: Anxiety Surgery & Anesthesia Issues No known issue Meds Anticoagulation: No Beta Arsenio within 24 hr: No Reason Beta Arsenio not given: Pt. not on B-Arsenio Reported Medications [Vitamin D] No Conflict Check 10/10/18 [Calcium] No Conflict Check 10/10/18 Aspirin* (Aspirin* Chew) 81 Mg Tab.chew, 81 MG PO DAILY, TAB.CHEW NO ALLERGIC REACTION PER PATIENT. 07/18/18 Fish Oil/Dha/Epa (FISH OIL 1,200 MG FISH OIL) 1 Each Capsule, 1 CAP PO QPM, CAP 07/18/18 Vitamin B Complex (B Complex # 1) 1 Each Tablet, 100 MG PO BID, TAB 07/18/18 Ubidecarenone (Coq-10) 100 Mg Capsule, 100 MG PO QAM, CAP 07/18/18 Ustekinumab (Stelara) 90 Mg/1 Ml Disp.syrin, 90 MG SQ EVERY 8 WEEKS 07/18/18 Loperamide Hcl* (Loperamide Hcl*) 2 Mg Cap, 2 MG PO BID, CAP 07/18/18 Pantoprazole* (Protonix*) 40 Mg Tablet.dr, 40 MG PO DAILY, TAB 07/18/18 Escitalopram Oxalate* (Lexapro*) 20 Mg Tablet, 20 MG PO DAILY, #30 TAB 07/18/18 Terazosin Hcl* (Terazosin Hcl*) 5 Mg Capsule, 5 MG PO HS, CAP 07/18/18 Atorvastatin Calcium (Atorvastatin Calcium) 10 Mg Tablet, 10 MG PO QHS, #30 TAB 07/18/18 Multivit-Min/FA/Lycopen/Lutein (Centrum Silver Men Tablet) 1 Each Tablet, 1 EACH PO DAILY, TAB 02/24/17 Loratadine* (Loratadine*) 10 Mg Tablet, 10 MG PO DAILY, #30 TAB 02/24/17 Mesalamine* (Pentasa*) 500 Mg Capsule.sa, 1500 MG PO BID, CAP 02/24/17 Discontinued Reported Medications Olmesartan Medoxomil (Benicar) 20 Mg Tablet, 20 MG PO DAILY, #30 TAB 07/18/18 Meds reviewed: Yes Allergies Coded Allergies: aspirin (Verified Allergy, Mild, 10/10/18) POSSIBLE ALLERGY TO ASPIRIN AT 325 BUT NO ISSUES ON LOW DOSE OF 81 MG-- PT CURRENTLY TAKING THAT DOSE Allergies Reviewed: Yes Labs/Studies Labs Reviewed: Reviewed by anesthesiologist test: N/A Pre-procedure Exam Last vitals Vital Signs Date Temp Pulse Resp B/P (MAP) Pulse Ox O2 O2 Flow FiO2 Time Delivery Rate 10/10/18 97.6 51 17 127/73 96 Room Air 12:41 (91) Airway: Adequate mouth opening, Adequate thyromental dist Mallampati: Mallampati II Teeth: Normal Lung: Normal Heart: Normal ASA Physical Status ASA physical status: 3 Emergency: None Pre-operative Attestations Prior to commencing anesthesia and surgery, the patient was re-evaluated, there was verification of: *The patient's identity *The results of appropriate recent lab work and preoperative vital signs *The above evaluation not changing prior to induction *Anesthetic plan, risk benefits, alternative and complications discussed with patient/family; questions answered; patient/family understands, accepts and wishes to proceed. CRISTEL DELATORRE DO Oct 10, 2018 13:08
[2018-10-10 14:15] VITALS: BP 132/74; RESP 17
--- NOTE | 2018-10-10 14:18 | PAC ---
Date/Time of Note Date/Time of Note DATE: 10/10/18 TIME: 14:17 Post-Anesthesia Notes Post-Anesthesia Note Last documented vital signs Vital Signs Date Temp Pulse Resp B/P (MAP) Pulse Ox O2 O2 Flow FiO2 Time Delivery Rate 10/10/18 97.6 51 17 127/73 96 Room Air 12:41 (91) Activity: WNL Respiratory function: WNL Cardiovascular function: WNL Mental status: Baseline Pain reasonably controlled: Yes Hydration appropriate: Yes Nausea/Vomiting absent: Yes CRISTEL DELATORRE DO Oct 10, 2018 14:18
--- NOTE | 2018-10-10 15:37 | GILP ---
DATE OF PROCEDURE: 10/10/2018 PROCEDURE PERFORMED: Colonoscopy. INDICATIONS: Followup of Crohn's disease. FINDINGS: After informed consent, the patient was placed in left lateral position and sedated per an esthesia. The Olympus video colonoscope was easily passed in patient's rectum. The instrument was a dvanced through the sigmoid, descending, transverse, ascending colon to the cecum. The appendiceal o rifice and ileocecal valve were identified. There was much stool obscuring the cecum and ascending c olon. This was lavaged clear as best could be accomplished. Within the cecum, a 3 mm polypoid lesio n was seen and removed in total with [employer] biopsy forceps. Terminal ileum was examined and appeared normal. The instrument was then slowly moved to cecum, ascending, transverse, descending and sigmoid colon. [employer] 4-quadrant biopsies were performed throughout these areas. There were no act vashti bleeding sites. Of note, a number of diverticula were noted as well. In the rectosigmoid area, anastomosis was identified. In the rectum, turnaround procedure was performed. There was ulceration and erosions noted within the rectum. This was photographed and multiple biopsies performed. There was no intraoperative bleeding at biopsy sites. The instrument was removed from the patient's rectu m. The patient tolerated procedure well. COMPLICATIONS: None. IMPRESSION: 1. Cecal polyp removed by biopsy technique. 2. Few diverticula. 3. Anastomosis identified in rectosigmoid. 4. Inflammation of the rectum. 5. Otherwise, noninflamed ileum and colon. PLAN: 1. Postoperative instructions were given to the patient. 2. Follow up pending pathology. Dictated By: URI MCFADDEN/NIRU Conf#: [id number] DID#: [id number] CC: KELI PARK MD;*EndCC*
== END 2018-10-10 16:30 | disposition home or self-care (01) ==
LOC: GIL 11:08
PROVIDERS: ATTEND Internal Medicine Gastroenterology
DX: D12.0 Benign neoplasm of cecum (principal); K57.90 Diverticulosis of intestine, part unspecified, without perforation or abscess without bleeding; I10 Essential (primary) hypertension; E78.5 Hyperlipidemia, unspecified; I25.10 Atherosclerotic heart disease of native coronary artery without angina pectoris; Z79.82 Long term (current) use of aspirin
CPT/HCPCS: 45380; 88305; J2250; J3010

== ENCOUNTER → 2018-11-08 | Outpatient (CLI) | payer BC ==
[~2018-11-08] MED LIST changes: +CALCIUM; -OLME20TA20 PO; +VITAMIN D
== END | disposition home or self-care (01) ==
LOC: LAB 09:23
PROVIDERS: ATTEND Internal Medicine Gastroenterology
DX: K50.00 Crohn's disease of small intestine without complications (principal)
CPT/HCPCS: 85025; 85651; 86140